=== PATIENT | male | born 1935 | race Caucasian/White ===

== ENCOUNTER 2017-03-22 14:42 | Outpatient (CLI) | payer MEDICARE, OTHER | END 2017-03-22 14:43 | disposition home or self-care (01) | DX: M19.072 Primary osteoarthritis, left ankle and foot (principal); M19.071 Primary osteoarthritis, right ankle and foot; M19.042 Primary osteoarthritis, left hand; M19.041 Primary osteoarthritis, right hand ==

== ENCOUNTER 2017-05-21 17:24 | Emergency (ER) | payer MEDICARE, OTHER ==
--- NOTE | 2017-05-21 18:01 | ED Physician Documentation ---
PD HPI GI BLEED - Stated complaint Stated Complaint: MALE - Chief complaint Chief Complaint: Abd Pain - History obtained from History obtained from: Patient, Family - History of Present Illness Timing - onset: Today Pain level max: 0 Pain level now: 0 Associated symptoms: Other (noted blood on his underwear today). No: Black/ tarry stool, Diarrhea Contributing factors: No: Sick contact, Bad food, Travel, Recent antibiotics, NSAID use, Stress, Anticoagulated Improved by: Other (nothing) Worsened by: Other (nothing) - Additional information Additional information: states constipated for the past few days. Review of Systems Constitutional: denies: Fever, Chills GI: reports: Constipation. denies: Abdominal Pain, Nausea, Vomiting, Diarrhea, Hematemesis Skin: denies: Rash Musculoskeletal: denies: Neck pain, Back pain Neurologic: denies: Focal weakness, Numbness, Headache PD PAST MEDICAL HISTORY - Past Medical History Past Medical History: Yes Respiratory: None Neuro: Other Psych: None Musculoskeletal: Osteoporosis - Past Surgical History Past Surgical History: Yes HEENT: Tonsil/Adenoidectomy - Present Medications Home Medications: Ambulatory Orders Medication Instructions Recorded Confirmed Cyanocobalamin (Vitamin B-12) 250 mcg PO 03/12/14 08/10/15 [B-12] Folic Acid 0.4 mg PO DAILY 03/12/14 08/10/15 Multivit-Min/Calc/Biotin/D3/FA 1 each PO 03/12/14 08/10/15 [Biotin Plus-Calcium & Vit D3] Vitamin B Complex [B Complete] 1 each PO DAILY 03/12/14 08/10/15 Celecoxib [CeleBREX] 200 mg PO DAILY 05/21/17 05/21/17 Magnesium Citrate 296 ml PO ONCE PRN #1 solution 05/21/17 - Allergies Allergies/Adverse Reactions: Allergies Allergy/AdvReac Type Severity Reaction Status Date / Time No Known Drug Allergies Allergy Verified 05/21/17 17:43 - Social History Does the pt smoke?: No Smoking Status: Never smoker Does the pt drink ETOH?: No Does the pt have substance abuse?: No - Immunizations Immunizations are current?: Yes PD ED PE NORMAL - Vitals Vital signs reviewed: Yes - General General: Alert and oriented X 3, No acute distress - HEENT HEENT: Moist mucous membranes - Neck Neck: Supple, no meningeal sign - Cardiac Cardiac: RRR - Respiratory Respiratory: No respiratory distress, Clear bilaterally - Abdomen Abdomen: Soft, Non tender, Non distended - Rectal Rectal: Other (normal. hemoccult neg. QC passed) - Derm Derm: Warm and dry - Neuro Neuro: Alert and oriented X 3 - Psych Psych: Normal mood, Normal affect Results - Vitals Vitals: Vital Signs - 24 hr 05/21/17 05/21/17 05/21/17 17:37 18:02 19:25 Temperature 36.4 C L 36.4 C L Heart Rate 64 76 Respiratory 16 20 15 Rate Blood Pressure 121/71 126/67 O2 Saturation 93 95 95 Oxygen O2 Source Room air - Labs Labs: Laboratory Tests 05/21/17 05/21/17 05/21/17 18:05 18:05 18:05 WBC 6.4 RBC 4.29 L Hgb 13.3 L Hct 38.4 L MCV 89.4 MCH 31.1 H MCHC 34.8 RDW 13.2 Plt Count 204 MPV 7.9 Neut # 4.6 Lymph # 0.9 L [place] # 0.8 Eos # 0.1 Baso # 0.0 Absolute Nucleated RBC 0.00 Nucleated RBCs 0.0 PT 11.3 INR 1.0 APTT 28.7 Sodium 136 Potassium 4.0 Chloride 103 Carbon Dioxide 26 Anion Gap 7.0 BUN 18 Creatinine 0.7 Estimated GFR (MDRD) 108 Glucose 104 H Calcium 8.8 Total Bilirubin 0.6 AST 22 ALT 17 Alkaline Phosphatase 50 Total Protein 6.7 Albumin 4.0 Globulin 2.7 Albumin/Globulin Ratio 1.5 Lipase 31 PD MEDICAL DECISION MAKING - ED course Complexity details: reviewed results, re-evaluated patient, considered differential, d/w patient, d/w family ED course: Patient is an 82-year-old male who presents to the emergency department with constipation today. Had fecal matter on his underwear earlier today which was thought to be blood. This was tested and hemoccult is negative. Negative Hemoccult on the rectal exam as well. No acute laboratory findings. Will place on magnesium citrate for constipation. Likely that he has had some leakage of liquid stool around the constipation. We will have him follow-up with his PCP closely. Tolerating p.o. without difficulty. No evidence of bowel obstruction or obstipation. Patient counseled regarding signs and symptoms for which I believe and urgent re-evaluation would be necessary. Patient with good understanding of and agreement to plan and is comfortable going home at this time This document was made in part using voice recognition software. While efforts are made to proofread this document, sound alike and grammatical errors may occur. Departure - Departure Disposition: 01 Home, Self Care Clinical Impression: Constipation Qualifiers: Constipation type: unspecified constipation type Qualified Code(s): K59.00 - Constipation, unspecified Condition: Good Instructions: ED Constipation Follow-Up: Johnathon Merino MD [Primary Care Provider] - Within 1 week Prescriptions: Magnesium Citrate 296 ml PO ONCE PRN #1 solution PRN Reason: Constipation Comments: Return if you worsen. There is no blood in your stool today. Discharge Date/Time: 05/21/17 19:26
[2017-05-21 18:20] LABS: BASOPHILS % (AUTO) 0.6 %; EOSINOPHILS # (AUTO) 0.1 10^3/uL (0.0-0.7); EOSINOPHILS % (AUTO) 0.9 %; HCT - HEMATOCRIT 38.4 % (42.0-52.0); HGB - HEMOGLOBIN 13.3 g/dL (14.0-18.0); LYMPHOCYTES # (AUTO) 0.9 10^3/uL (1.5-3.5); LYMPHOCYTES % (AUTO) 13.6 %; MEAN CORPUSCULAR HEMOGLOBIN 31.1 pg (27.0-31.0); MEAN CORPUSCULAR HGB CONC 34.8 g/dL (32.0-36.0); MEAN CORPUSCULAR VOLUME 89.4 fL (80.0-94.0); MEAN PLATELET VOLUME 7.9 fL (7.4-11.4); MONOCYTES # (AUTO) 0.8 10^3/uL (0.0-1.0); MONOCYTES % (AUTO) 13.2 %; NEUTROPHILS # (AUTO) 4.6 10^3/uL (1.5-6.6); NEUTROPHILS % (AUTO) 71.7 %; RED BLOOD COUNT 4.29 10^6/uL (4.70-6.10); RED CELL DISTRIBUTION WIDTH 13.2 % (12.0-15.0); UNCORRECTED WHITE BLOOD COUNT 6.4 x10^3/uL; WHITE BLOOD COUNT 6.4 x10^3/uL (4.8-10.8)
[2017-05-21 18:25] LABS: ALBUMIN/GLOBULIN RATIO 1.5 (1.0-2.2); BILIRUBIN,TOTAL 0.6 mg/dL (0.2-1.0); CALCIUM 8.8 mg/dL (8.5-10.3); CREATININE 0.7 mg/dL (0.6-1.2); PT - PROTHROMBIN TIME 11.3 secs (9.9-12.6); TOTAL PROTEIN 6.7 g/dL (6.7-8.2)
[2017-05-21 18:33] LABS: PARTIAL THROMBOPLASTIN TIME 28.7 secs (24.9-33.3)
[2017-05-21 19:26] VITALS: BP 126/67
== END 2017-05-21 19:26 | disposition home or self-care (01) ==
LOC: ED 17:24
DX: K59.00 Constipation, unspecified (principal)
CPT/HCPCS: 36415; 80053; 83690; 85025; 85610; 85730; 86850; 86900; 86901; 99283; 99284

== ENCOUNTER 2017-05-27 08:00 | Outpatient (CLI) | payer MEDICARE, OTHER ==
[2017-05-27 16:46] LABS: ALBUMIN/GLOBULIN RATIO 1.4 (1.0-2.2); BILIRUBIN,TOTAL 0.7 mg/dL (0.2-1.0); CALCIUM 8.7 mg/dL (8.5-10.3); CREATININE 0.8 mg/dL (0.6-1.2); POTASSIUM 4.3 mmol/L (3.5-5.0); TOTAL PROTEIN 6.3 g/dL (6.7-8.2)
[2017-05-28 12:00] LABS: BASOPHILS % (AUTO) 0.7 %; EOSINOPHILS % (AUTO) 0.8 %; HCT - HEMATOCRIT 39.2 % (42.0-52.0); LYMPHOCYTES # (AUTO) 0.8 10^3/uL (1.5-3.5); LYMPHOCYTES % (AUTO) 14.4 %; MEAN CORPUSCULAR HEMOGLOBIN 30.1 pg (27.0-31.0); MEAN CORPUSCULAR HGB CONC 33.3 g/dL (32.0-36.0); MEAN CORPUSCULAR VOLUME 90.5 fL (80.0-94.0); MEAN PLATELET VOLUME 8.6 fL (7.4-11.4); MONOCYTES # (AUTO) 0.6 10^3/uL (0.0-1.0); MONOCYTES % (AUTO) 11.1 %; NEUTROPHILS # (AUTO) 3.9 10^3/uL (1.5-6.6); RED BLOOD COUNT 4.33 10^6/uL (4.70-6.10); UNCORRECTED WHITE BLOOD COUNT 5.3 x10^3/uL; WHITE BLOOD COUNT 5.3 x10^3/uL (4.8-10.8)
== END 2017-05-27 23:59 ==
LOC: LAB.R 08:00
PROVIDERS: ATTEND Family Medicine
DX: M19.90 Unspecified osteoarthritis, unspecified site (principal)
CPT/HCPCS: 80053; 81001; 81003; 85025; 87086

== ENCOUNTER 2017-05-27 12:10 | Outpatient (CLI) | payer MEDICARE, OTHER ==
[2017-05-27 16:44] LABS: BILIRUBIN,URINE NEGATIVE (NEGATIVE); PH,URINE 5.5 PH (5.0-7.5)
[2017-05-27 16:47] LABS: UA CHARGE (STRIP ONLY) YES; UR CULTURE IF IND NOT INDICATED
== END 2017-05-27 12:11 | disposition home or self-care (01) ==
LOC: LAB.R 12:10
PROVIDERS: ATTEND Physician Assistant Medical
DX: R32 Unspecified urinary incontinence (principal)
CPT/HCPCS: 81001; 81003; 87086

== ENCOUNTER 2018-07-11 09:54 | Emergency (ER) | payer MEDICARE, OTHER ==
[2018-07-11 10:28] LABS: BILIRUBIN,URINE NEGATIVE (NEGATIVE); GLUCOSE, URINE (UA) NEGATIVE (NEGATIVE); KETONES,URINE (UA) NEGATIVE (NEGATIVE); LEUKOCYTE ESTERASE, URINE NEGATIVE (NEGATIVE); NITRITE,URINE NEGATIVE (NEGATIVE); OCCULT BLOOD,URINE TRACE-INTA (NEGATIVE); PROTEIN,URINE NEGATIVE (NEGATIVE); UROBILINOGEN,URINE 0.2 (NORMAL) E.U./dL (NORMAL)
[2018-07-11 10:31] LABS: CLARITY,URINE CLEAR (CLEAR)
--- NOTE | 2018-07-11 10:54 | ED Physician Documentation ---
PD HPI MALE - Stated complaint Stated Complaint: UNALBE TO UNRINATE - Chief complaint Chief Complaint: Abd Pain - History obtained from History obtained from: Patient, Family - History of Present Illness Timing - onset: Today Timing - duration: Hours Timing - details: Abrupt onset, Still present Associated symptoms: Unable to urinate Similar symptoms before: Diagnosis (urinary retention) Recently seen: Not recently seen - Additional information Additional information: 83-year-old male on tamsulosin for BPH has developed acute urinary retention. He states that he got up to go to the bathroom this morning went to the bathroom was only able to get a tiny bit out and felt that he really needed to go badly. He is come to the emergency department he try to go to the bathroom when he arrived here nothing was able to come out and since he has been here he has been able to produce a small urine specimen.He has had this happen to him 2 times previously with urinary retention after his surgical procedure at that time he only had to have in and out catheterization and this resolved. Review of Systems Constitutional: denies: Fever Eyes: denies: Decreased vision Ears: denies: Ear pain Nose: denies: Congestion Throat: denies: Sore throat Respiratory: denies: Cough GI: reports: Abdominal Pain. denies: Nausea, Vomiting : reports: Unable to Void. denies: Dysuria, Frequency Skin: denies: Rash Musculoskeletal: denies: Neck pain, Back pain, Extremity pain PD PAST MEDICAL HISTORY - Past Medical History Respiratory: None HEENT: Macular degeneration Psych: None Musculoskeletal: Osteoporosis - Past Surgical History Past Surgical History: Yes HEENT: Tonsil/Adenoidectomy - Present Medications Home Medications: Ambulatory Orders Medication Instructions Recorded Confirmed Cyanocobalamin (Vitamin B-12) 250 mcg PO 03/12/14 08/10/15 [B-12] Folic Acid 0.4 mg PO DAILY 03/12/14 08/10/15 Multivit-Min/Calc/Biotin/D3/FA 1 each PO 03/12/14 08/10/15 [Biotin Plus-Calcium & Vit D3] Vitamin B Complex [B Complete] 1 each PO DAILY 03/12/14 08/10/15 Celecoxib [CeleBREX] 200 mg PO DAILY 05/21/17 05/21/17 Magnesium Citrate 296 ml PO ONCE PRN #1 solution 05/21/17 Finasteride [Proscar] 07/11/18 07/11/18 Tamsulosin [Flomax] 07/11/18 - Allergies Allergies/Adverse Reactions: Allergies Allergy/AdvReac Type Severity Reaction Status Date / Time No Known Drug Allergies Allergy Verified 07/11/18 10:08 - Social History Does the pt smoke?: No Smoking Status: Never smoker Does the pt drink ETOH?: No Does the pt have substance abuse?: No - Immunizations Immunizations are current?: Yes PD ED PE NORMAL - Vitals Vital signs reviewed: Yes (normal ) - General General: Alert and oriented X 3, No acute distress, Well developed/nourished - HEENT HEENT: Atraumatic, PERRL, EOMI - Cardiac Cardiac: RRR, No murmur - Respiratory Respiratory: No respiratory distress, Clear bilaterally - Abdomen Abdomen: Soft, Other (mild suprapubic tenderness) - Back Back: No CVA TTP, No spinal TTP - Derm Derm: Normal color, Warm and dry, No rash - Extremities Extremities: No deformity, No edema - Neuro Neuro: Alert and oriented X 3, bull fiddle player 2-12 intact, No motor deficit, No sensory deficit, Normal speech Eye Opening: Spontaneous Motor: Obeys Commands Verbal: Oriented GCS Score: 15 - Psych Psych: Normal mood, Normal affect Results - Vitals Vitals: Vital Signs - 24 hr 07/11/18 10:06 Temperature 36.2 C L Heart Rate 75 Respiratory 20 Rate Blood Pressure 109/75 O2 Saturation 97 Oxygen O2 Source Room air - Labs Labs: Laboratory Tests 07/11/18 10:15 Urine Color YELLOW Urine Clarity CLEAR Urine pH 6.0 Ur Specific [place] 1.010 Urine Protein NEGATIVE Urine Glucose (UA) NEGATIVE Urine Ketones NEGATIVE Urine Occult Blood TRACE-INTA Urine Nitrite NEGATIVE Urine Bilirubin NEGATIVE Urine Urobilinogen 0.2 (NORMAL) Ur Leukocyte Esterase NEGATIVE Ur Microscopic Review NOT INDICATED Urine Culture Comments NOT INDICATED Procedures - Bedside sono Bedside sono by EMP: With use of bedside ultrasound the bladder is imaged and appears to be over distended. PD MEDICAL DECISION MAKING - ED course Complexity details: considered differential, d/w patient ED course: 83-year-old male with acute urinary retention has Hernandez catheter placed for relief. - Sepsis Event Vital Signs: Vital Signs - 24 hr 07/11/18 10:06 Temperature 36.2 C L Heart Rate 75 Respiratory 20 Rate Blood Pressure 109/75 O2 Saturation 97 Oxygen O2 Source Room air Departure - Departure Disposition: 01 Home, Self Care Clinical Impression: Acute urinary retention Condition: Stable Instructions: ED Retention Urinary Male Follow-Up: Johnathon Merino MD [Primary Care Provider] - Melecio Bhaita MD [Physician No Access] - Comments: Call Dr. Alcazar's office this afternoon for follow-up appointment for this urinary retention.
[2018-07-11 12:51] VITALS: BP 134/74
== END 2018-07-11 13:02 | disposition home or self-care (01) ==
LOC: ED 09:54
DX: N40.1 Benign prostatic hyperplasia with lower urinary tract symptoms (principal); R33.8 Other retention of urine
CPT/HCPCS: 51702; 81001; 81003; 87086; 99283

== ENCOUNTER 2018-08-16 13:01 | Outpatient (CLI) | payer MEDICARE, OTHER | END 2018-08-16 13:02 | disposition critical access hospital (66) | LOC: EMS 13:01 | PROVIDERS: ATTEND Surgery | DX: R53.1 Weakness (principal); R53.83 Other fatigue | CPT/HCPCS: A0425; A0429 ==

== ENCOUNTER 2018-08-16 13:36 | Inpatient (IN) | payer MEDICARE, OTHER ==
[2018-08-16 14:08] LABS: BASOPHILS # (AUTO) 0.1 10^3/uL (0.0-0.1); BASOPHILS % (AUTO) 0.3 %; HGB - HEMOGLOBIN 12.6 g/dL (14.0-18.0); LYMPHOCYTES # (AUTO) 0.4 10^3/uL (1.5-3.5); LYMPHOCYTES % (AUTO) 2.4 %; MEAN CORPUSCULAR HGB CONC 34.5 g/dL (32.0-36.0); MEAN CORPUSCULAR VOLUME 89.7 fL (80.0-94.0); MEAN PLATELET VOLUME 7.6 fL (7.4-11.4); MONOCYTES # (AUTO) 1.8 10^3/uL (0.0-1.0); MONOCYTES % (AUTO) 9.8 %; NEUTROPHILS # (AUTO) 15.9 10^3/uL (1.5-6.6); NEUTROPHILS % (AUTO) 87.5 %; PLT - PLATELET COUNT 204 10^3/uL (130-450); RED BLOOD COUNT 4.08 10^6/uL (4.70-6.10); RED CELL DISTRIBUTION WIDTH 13.4 % (12.0-15.0); WHITE BLOOD COUNT 18.1 x10^3/uL (4.8-10.8)
[2018-08-16 14:17] LABS: CALCIUM 8.8 mg/dL (8.5-10.3); CREATININE 0.9 mg/dL (0.6-1.2)
--- NOTE | 2018-08-16 14:49 | XRAY Report ---
Reason: weak Procedure Date: 08/16/2018 Accession Number: [id number] / [id number] Procedure: XR - Chest 2 View X-Ray CPT Code: 74729 FULL RESULT: EXAM: CHEST RADIOGRAPHY EXAM DATE: 08/16/2018 02:27 PM. CLINICAL HISTORY: Weakness COMPARISON: XR CHEST PA AND LAT 06/27/2009 12:32 PM. TECHNIQUE: 2 views. FINDINGS: Lungs/Pleura: No focal opacities evident. No pleural effusion. No pneumothorax. Normal volumes. Mediastinum: There is mild cardiomegaly. There is thoracic aortic tortuosity. Other: There is shunt tubing projecting over the right chest. IMPRESSION: No acute intrathoracic plain film abnormality. RADIA
--- NOTE | 2018-08-16 15:34 | ED Physician Documentation ---
History of Present Illness - Stated complaint Stated Complaint: WEAKNESS - Chief complaint Chief Complaint: General - Additonal information Additional information: hx from pt 83 male weak for several days no fever + cough mild upper abd pain no NVD no bloody black BM leaking urine and dysuira no rash too weak to stand now weakness is all over no fall Review of Systems Constitutional: reports: Fatigue. denies: Fever, Chills Cardiac: denies: Chest pain / pressure Respiratory: reports: Cough. denies: Dyspnea GI: reports: Abdominal Pain. denies: Nausea, Vomiting, Diarrhea, Bloody / black stool : reports: Incontinent. denies: Dysuria Skin: denies: Rash Neurologic: reports: Generalized weakness. 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 shunt HEENT: Tonsil/Adenoidectomy - Present Medications Home Medications: Ambulatory Orders Medication Instructions Recorded Confirmed Cyanocobalamin (Vitamin B-12) 250 mcg PO 03/12/14 08/10/15 [B-12] Folic Acid 0.4 mg PO DAILY 03/12/14 08/10/15 Multivit-Min/Calc/Biotin/D3/FA 1 each PO 03/12/14 08/10/15 [Biotin Plus-Calcium & Vit D3] Vitamin B Complex [B Complete] 1 each PO DAILY 03/12/14 08/10/15 Celecoxib [CeleBREX] 200 mg PO DAILY 05/21/17 05/21/17 Magnesium Citrate 296 ml PO ONCE PRN #1 solution 05/21/17 Finasteride [Proscar] 07/11/18 07/11/18 Tamsulosin [Flomax] 07/11/18 - Allergies Allergies/Adverse Reactions: Allergies Allergy/AdvReac Type Severity Reaction Status Date / Time No Known Drug Allergies Allergy Verified 08/16/18 14:01 - Social History Does the pt smoke?: No Smoking Status: Never smoker Does the pt drink ETOH?: No Does the pt have substance abuse?: No - Immunizations Immunizations are current?: Yes PD ED PE NORMAL - Vitals Vital signs reviewed: Yes - General General: Alert and oriented X 3 - HEENT HEENT: PERRL - Neck Neck: Supple, no meningeal sign - Cardiac Cardiac: RRR - Respiratory Respiratory: No respiratory distress, Clear bilaterally - Abdomen Abdomen: Soft, Other (minimally TTP upper abd s peritoneal sx) - Derm Derm: Normal color, No rash, Other (no sacral decub) - Neuro Neuro: Alert and oriented X 3 Results - Vitals Vitals: Vital Signs - 24 hr 08/16/18 08/16/18 08/16/18 13:36 14:29 15:00 Temperature 37.7 C H 37.7 C H Heart Rate 92 86 95 Respiratory 18 18 22 Rate Blood Pressure 132/63 H 126/59 L 137/71 H O2 Saturation 100 95 97 08/16/18 08/16/18 08/16/18 16:00 16:30 17:28 Temperature Heart Rate 89 88 88 Respiratory 22 22 18 Rate Blood Pressure 145/64 H 127/66 136/64 H O2 Saturation 96 96 97 08/16/18 18:34 Temperature 38.7 C H Heart Rate 86 Respiratory 18 Rate Blood Pressure 145/68 H O2 Saturation 96 Oxygen O2 Source Room air - Labs Labs: Laboratory Tests 08/16/18 08/16/18 08/16/18 13:57 13:57 13:57 WBC 18.1 H RBC 4.08 L Hgb 12.6 L Hct 36.6 L MCV 89.7 MCH 31.0 MCHC 34.5 RDW 13.4 Plt Count 204 MPV 7.6 Neut # (Auto) 15.9 H Lymph # (Auto) 0.4 L [place] # (Auto) 1.8 H Eos # (Auto) 0.0 Baso # (Auto) 0.1 Absolute Nucleated RBC 0.00 Nucleated RBC % 0.0 Sodium 136 Potassium 4.1 Chloride 102 Carbon Dioxide 27 Anion Gap 7.0 BUN 30 H Creatinine 0.9 Estimated GFR (MDRD) 80 L Glucose 148 H Lactic Acid Calcium 8.8 Troponin I < 0.04 Urine Color Urine Clarity Urine pH Ur Specific [place] Urine Protein Urine Glucose (UA) Urine Ketones Urine Occult Blood Urine Nitrite Urine Bilirubin Urine Urobilinogen Ur Leukocyte Esterase Urine RBC Urine WBC Urine WBC Clumps Ur Squamous Epith Cells Urine Bacteria Ur Microscopic Review Urine Culture Comments 08/16/18 08/16/18 13:57 15:55 WBC RBC Hgb Hct MCV MCH MCHC RDW Plt Count MPV Neut # (Auto) Lymph # (Auto) [place] # (Auto) Eos # (Auto) Baso # (Auto) Absolute Nucleated RBC Nucleated RBC % Sodium Potassium Chloride Carbon Dioxide Anion Gap BUN Creatinine Estimated GFR (MDRD) Glucose Lactic Acid 1.1 Calcium Troponin I Urine Color YELLOW Urine Clarity CLOUDY Urine pH 6.0 Ur Specific [place] 1.020 Urine Protein 30 H Urine Glucose (UA) NEGATIVE Urine Ketones TRACE Urine Occult Blood LARGE H Urine Nitrite POSITIVE H Urine Bilirubin NEGATIVE Urine Urobilinogen 0.2 (NORMAL) Ur Leukocyte Esterase LARGE H Urine RBC 0-5 Urine WBC >25 H Urine WBC Clumps PRESENT Ur Squamous Epith Cells NONE SEEN Urine Bacteria Many H Ur Microscopic Review INDICATED Urine Culture Comments INDICATED - Rads (name of study) CXR Radiology: See rad report (no acute) PD MEDICAL DECISION MAKING - ED course ED course: UTI with weakness so severe he cannot stand given male and concern for prostate seeding ordered maria isabel hitchcock hospitalist at 1630 - Sepsis Event Vital Signs: Vital Signs - 24 hr 08/16/18 08/16/18 08/16/18 13:36 14:29 15:00 Temperature 37.7 C H 37.7 C H Heart Rate 92 86 95 Respiratory 18 18 22 Rate Blood Pressure 132/63 H 126/59 L 137/71 H O2 Saturation 100 95 97 08/16/18 08/16/18 08/16/18 16:00 16:30 17:28 Temperature Heart Rate 89 88 88 Respiratory 22 22 18 Rate Blood Pressure 145/64 H 127/66 136/64 H O2 Saturation 96 96 97 08/16/18 18:34 Temperature 38.7 C H Heart Rate 86 Respiratory 18 Rate Blood Pressure 145/68 H O2 Saturation 96 Oxygen O2 Source Room air Departure - Departure Disposition: 66 [facility] DC/Xfer Clinical Impression: Weakness UTI (urinary tract infection) Qualifiers: Urinary tract infection type: site unspecified Hematuria presence: without hematuria Qualified Code(s): N39.0 - Urinary tract infection, site not specified Condition: Fair Discharge Date/Time: 08/16/18 19:31
[2018-08-16 16:09] LABS: BILIRUBIN,URINE NEGATIVE (NEGATIVE); GLUCOSE, URINE (UA) NEGATIVE (NEGATIVE); KETONES,URINE (UA) TRACE mg/dL (NEGATIVE); LEUKOCYTE ESTERASE, URINE LARGE (NEGATIVE); NITRITE,URINE POSITIVE (NEGATIVE); OCCULT BLOOD,URINE LARGE (NEGATIVE); PROTEIN,URINE 30 mg/dL (NEGATIVE); UROBILINOGEN,URINE 0.2 (NORMAL) E.U./dL (NORMAL)
[2018-08-16 16:15] LABS: CLARITY,URINE CLOUDY (CLEAR)
[2018-08-16 16:24] LABS: BACTERIA,URINE Many /HPF (None Seen); RBC,URINE 0-5 /HPF (0-5); SQUAMOUS EPITHELIAL CELL,UR NONE SEEN (<= Few); WBC CLUMPS,URINE PRESENT
[2018-08-16] MEDS ORDERED: cefTRIAXone 1 GM in SODIUM CHLORIDE 0.9% MINIBAG 100 ML IV STA (16:27)
[2018-08-16] MEDS ORDERED: CIPROFLOXACIN 400 MG/200 ML 200 ML IV ONE (16:29)
--- NOTE | 2018-08-16 19:37 | HISTORY & PHYSICAL EXAMINATION ---
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 The patient states that his symptoms have been going on for almost 1 month now where he is felt increasingly weak. He states that about 3 weeks ago he began having difficulty urinating. He had urinary retention and was seen in the emergency department where he had a Hernandez catheter placed for his urinary retention. About 1 week ago the Hernandez catheter was removed and after removal of the Hernandez catheter the patient started to notice that he had dysuria and fevers. He states that over the course of the next week he became increasingly weak. The patient states that today he was so weak that he could not even stand up. He states that he was having a difficult time standing from a sitting position and finally decided he needed to come in to the emergency department. The patient states that he has noticed that he has had fevers and chills for the last 3 days and significantly increasing generalized weakness over the last 3 days. He denies any chest pain, cough, shortness of air, abdominal pain, nausea, vomiting, diarrhea, constipation, back pain, neck stiffness, night sweats or any focal neurologic deficits. On presentation to the emergency department the patient was febrile with a temperature of 37.7 and had a T-max in the emergency department of 38.7, he was tachycardic with a heart rate of 92 and otherwise was normotensive and had no respiratory distress. The patient underwent routine lab work which revealed a leukocytosis of 18.1, mild anemia of 12.6 and mild hyperglycemia with a blood glucose of 148. The remainder of the patient's electrolytes were all within normal limits. The patient had no elevation his lactic acid. The patient's troponin was less than 0.04. The patient's urinalysis did reveal large occult blood with positive nitrite and large leukocyte estrase along with greater than 25 WBCs and many bacteria. These findings were consistent with a urinary tract infection. The patient appeared to have a complicated UTI given his early sepsis type picture in the setting of a history of BPH. The patient was admitted to the [facility] for treatment of urinary tract infection with IV antibiotics, IV fluids and physical therapy. 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 Social History Notes: The patient lives in [place], [place] with his . He is been to his for 57 years. They have 2 children together. The patient grew up in the [facility] where he moved up and down the [facility] and then settled in the [facility] where he brought up his family. 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 The patient is a former smoker. He smoked 1 pack per day until 1988 when he quit. The patient smoked for about 45 years. He rarely drinks alcohol and denies any illicit drug use. - POLST Patient has POLST: No POLST Status: Full Code Meds/Allgy - Home Medications Home Medications: Ambulatory Orders Medication Instructions Recorded Confirmed Cyanocobalamin (Vitamin B-12) 250 mcg PO 03/12/14 08/10/15 [B-12] Folic Acid 0.4 mg PO DAILY 03/12/14 08/10/15 Multivit-Min/Calc/Biotin/D3/FA 1 each PO 03/12/14 08/10/15 [Biotin Plus-Calcium & Vit D3] Vitamin B Complex [B Complete] 1 each PO DAILY 03/12/14 08/10/15 Celecoxib [CeleBREX] 200 mg PO DAILY 05/21/17 05/21/17 Magnesium Citrate 296 ml PO ONCE PRN #1 solution 05/21/17 Finasteride [Proscar] 07/11/18 07/11/18 Tamsulosin [Flomax] 07/11/18 - Allergies Allergies/Adverse Reactions: Allergies Allergy/AdvReac Type Severity Reaction Status Date / Time No Known Drug Allergies Allergy Verified 08/16/18 14:01 Review of Systems - Other Findings Other Findings: A comprehensive review of systems was performed the pertinent positives and negatives are stated above in the HPI and the remainder of the review of systems is negative. Exam - Vital Signs Reviewed Vital Signs: Yes Vital Signs: Vital Signs x48h Temp Pulse Resp BP Pulse Ox 08/16/18 18:34 38.7 C H 86 18 145/68 H 96 08/16/18 17:28 88 18 136/64 H 97 08/16/18 16:30 88 22 127/66 96 08/16/18 16:00 89 22 145/64 H 96 08/16/18 15:00 95 22 137/71 H 97 08/16/18 14:29 37.7 C H 86 18 126/59 L 95 08/16/18 13:36 37.7 C H 92 18 132/63 H 100 - Physical Exam General Appearance: positive: Mild distress, Other (Patient is very drowsy barely opens his eyes when talking to me or when he is examined. He appears very weak.) Eyes Bilateral: positive: Normal inspection, PERRL, EOMI, No lid inflammation, Conjunctivae nml, No scleral icterus ENT: positive: ENT inspection nml, Pharynx nml, Dry mucous membranes. negative: Purulent nasal drainage, Pharyngeal erythema, Oral lesions Neck: positive: Nml inspection, Thyroid nml, No JVD, Trachea midline. negative: Thyromegaly, Lymphadenopathy (R), Lymphadenopathy (L), Carotid bruit, Tracheal deviation Respiratory: positive: Chest non-tender, No respiratory distress, Breath sounds nml. negative: Wheezes, Rales, Rhonchi Cardiovascular: positive: Regular rate & rhythm, No murmur, No gallop Peripheral Pulses: positive: 2+ Abdomen: positive: Non-tender, No organomegaly, Nml bowel sounds, No distention. negative: Guarding, Rebound, Hepatomegaly Back: positive: Nml inspection. negative: CVA tenderness (R), CVA tenderness (L) Skin: positive: Color nml, No rash, Warm, Dry. negative: Cyanosis, Diaphoresis, Pallor Extremities: positive: Non-tender, Full ROM, Nml appearance, No pedal edema Neurologic/Psychiatric: positive: Oriented x3, CN's nml (2-12), Motor nml, Sensation nml, Mood/affect nml Conclusion/Plan - Problem List (1) UTI (urinary tract infection) Conclusion/Plan: The patient presented to the emergency department with early sepsis and generalized weakness. The patient had fever in the emergency department up to 38.7C, he was tachycardic up to heart rate of 95 and was found to have leukocytosis with a WBC count of 18.1. The patient was quite drowsy when examined by myself. The patient was found to have a urinary tract infection after having a Hernandez placed a week earlier for urinary retention. The urinary tract infection may have been caused by the Hernandez catheter or due to the patient's BPH. Plan: IV antibiotics with ceftriaxone Blood cultures and urine cultures IV fluids Check BPH and consider treating for prostatitis if it is elevated Qualifiers: Urinary tract infection type: site unspecified Hematuria presence: without hematuria Qualified Code(s): N39.0 - Urinary tract infection, site not specified (2) Weakness Conclusion/Plan: Patient presented with generalized weakness which appears likely to be secondary to ongoing urinary tract infection and early sepsis. The patient will have his infection treated with IV fluids and an IV antibiotics. We will continue to monitor the patient's weakness which which we assume will improve with improvement of the infection. The patient will be seen by physical therapy and assessed. (3) Hyperglycemia Conclusion/Plan: The patient does not have any history of diabetes but was hyperglycemic on presentation with a blood glucose of 148. The patient will have blood glucose monitored daily and will undergo hemoglobin A1c in the morning. Depending on the results we will consider placing the patient on sliding scale insulin. (4) BPH (benign prostatic hyperplasia) Conclusion/Plan: Patient has been having significant symptoms of his BPH and recently required a Hernandez catheter for urinary retention. Likely the patient's current UTI is due to placement of a Hernandez catheter or from the urinary retention. It is possible the patient may have prostatitis given the enlarged prostate. We will check the patient's PSA and consider treating for prostatitis with longer duration of antibiotics. We will continue the patient's home dose of Flomax and finasteride while he is hospitalized. Qualifiers: Lower urinary tract symptom presence: symptoms present Lower urinary tract symptom detail: urinary retention Qualified Code(s): N40.1 - Benign prostatic hyperplasia with lower urinary tract symptoms; R33.8 - Other retention of urine (5) Osteoarthritis Conclusion/Plan: The patient has a history of osteoarthritis and does use Celebrex at home. While the patient is hospitalized here we will place him on Tylenol, ibuprofen and oxycodone for pain relief. Patient will also be seen by physical therapy. Qualifiers: Osteoarthritis location: unspecified site Osteoarthritis type: unspecified Qualified Code(s): M19.90 - Unspecified osteoarthritis, unspecified site - Lab Results Lab results reviewed: Yes Fish Bones: 08/16/18 13:57 08/16/18 13:57 Other Lab Results: Laboratory Results WBC 18.1 x10^3/uL (4.8-10.8) H 08/16/18 13:57 RBC 4.08 10^6/uL (4.70-6.10) L 08/16/18 13:57 Hgb 12.6 g/dL (14.0-18.0) L 08/16/18 13:57 Hct 36.6 % (42.0-52.0) L 08/16/18 13:57 MCV 89.7 fL (80.0-94.0) 08/16/18 13:57 MCH 31.0 pg (27.0-31.0) 08/16/18 13:57 MCHC 34.5 g/dL (32.0-36.0) 08/16/18 13:57 RDW 13.4 % (12.0-15.0) 08/16/18 13:57 Plt Count 204 10^3/uL (130-450) 08/16/18 13:57 MPV 7.6 fL (7.4-11.4) 08/16/18 13:57 Neut # (Auto) 15.9 10^3/uL (1.5-6.6) H 08/16/18 13:57 Lymph # (Auto) 0.4 10^3/uL (1.5-3.5) L 08/16/18 13:57 [place] # (Auto) 1.8 10^3/uL (0.0-1.0) H 08/16/18 13:57 Eos # (Auto) 0.0 10^3/uL (0.0-0.7) 08/16/18 13:57 Baso # (Auto) 0.1 10^3/uL (0.0-0.1) 08/16/18 13:57 Absolute Nucleated RBC 0.00 x10^3/uL 08/16/18 13:57 Nucleated RBC % 0.0 /100WBC 08/16/18 13:57 Sodium 136 mmol/L (135-145) 08/16/18 13:57 Potassium 4.1 mmol/L (3.5-5.0) 08/16/18 13:57 Chloride 102 mmol/L (101-111) 08/16/18 13:57 Carbon Dioxide 27 mmol/L (21-32) 08/16/18 13:57 Anion Gap 7.0 (6-13) 08/16/18 13:57 BUN 30 mg/dL (6-20) H 08/16/18 13:57 Creatinine 0.9 mg/dL (0.6-1.2) 08/16/18 13:57 Estimated GFR (MDRD) 80 (>89) L 08/16/18 13:57 Glucose 148 mg/dL (70-100) H 08/16/18 13:57 Lactic Acid 1.1 mmol/L (0.5-2.2) 08/16/18 13:57 Calcium 8.8 mg/dL (8.5-10.3) 08/16/18 13:57 Troponin I < 0.04 ng/mL (<0.49) 08/16/18 13:57 Urine Color YELLOW 08/16/18 15:55 Urine Clarity CLOUDY (CLEAR) 08/16/18 15:55 Urine pH 6.0 PH (5.0-7.5) 08/16/18 15:55 Ur Specific [place] 1.020 (1.002-1.030) 08/16/18 15:55 Urine Protein 30 mg/dL (NEGATIVE) H 08/16/18 15:55 Urine Glucose (UA) NEGATIVE mg/dL (NEGATIVE) 08/16/18 15:55 Urine Ketones TRACE mg/dL (NEGATIVE) 08/16/18 15:55 Urine Occult Blood LARGE (NEGATIVE) H 08/16/18 15:55 Urine Nitrite POSITIVE (NEGATIVE) H 08/16/18 15:55 Urine Bilirubin NEGATIVE (NEGATIVE) 08/16/18 15:55 Urine Urobilinogen 0.2 (NORMAL) E.U./dL (NORMAL) 08/16/18 15:55 Ur Leukocyte Esterase LARGE (NEGATIVE) H 08/16/18 15:55 Urine RBC 0-5 /HPF (0-5) 08/16/18 15:55 Urine WBC >25 /HPF (0-3) H 08/16/18 15:55 Urine WBC Clumps PRESENT 08/16/18 15:55 Ur Squamous Epith Cells NONE SEEN (<= Few) 08/16/18 15:55 Urine Bacteria Many /HPF (None Seen) H 08/16/18 15:55 Ur Microscopic Review INDICATED 08/16/18 15:55 Urine Culture Comments INDICATED 08/16/18 15:55 - Diagnostic Imaging Results Diagnostic Imaging Results: positive: Final report reviewed - EKG Results EKG Interpreted Independently: Yes Core Measures - Anticipated LOS I expect patient to be DC'd or transferred within 96 hours.: Yes - DVT/VTE - Prophylaxis VTE/DVT Prophylaxis med ordered at admit?: Yes
[2018-08-16] MEDS ORDERED: IBUPROFEN 600 MG TABLET PO PRN (20:39)
[2018-08-16] MEDS ORDERED: PROMETHAZINE 25 MG/1 ML VIAL IM PRN (20:39)
[2018-08-16] MEDS ORDERED: PROCHLORPERAZINE 10 MG/2 ML VIAL IVP PRN (20:39)
[2018-08-16] MEDS ORDERED: oxyCODONE 5 MG TABLET PO PRN ×2 (20:39)
[2018-08-16] MEDS ORDERED: ZOLPIDEM 5 MG TABLET PO PRN (20:39)
[2018-08-16] MEDS ORDERED: ONDANSETRON 4 MG/2 ML VIAL IVP PRN (20:39)
[2018-08-16] MEDS: ACETAMINOPHEN 325 MG TABLET PO PRN (21:21)
[2018-08-16] MEDS: SODIUM CHLORIDE FLUSH 0.9% 10 ML SYRINGE IVP PRN (21:22)
[2018-08-16] MEDS: SODIUM CHLORIDE 0.9% 1,000 ML IV SCH (21:22)
[2018-08-17] MEDS: SODIUM CHLORIDE FLUSH 0.9% 10 ML SYRINGE IVP SCH ×3 (01:34→17:45)
[2018-08-17 04:54] LABS: BASOPHILS % (AUTO) 0.2 %; HGB - HEMOGLOBIN 11.5 g/dL (14.0-18.0); LYMPHOCYTES # (AUTO) 0.4 10^3/uL (1.5-3.5); LYMPHOCYTES % (AUTO) 2.6 %; MEAN CORPUSCULAR HEMOGLOBIN 30.9 pg (27.0-31.0); MEAN CORPUSCULAR HGB CONC 34.3 g/dL (32.0-36.0); MEAN CORPUSCULAR VOLUME 90.1 fL (80.0-94.0); MEAN PLATELET VOLUME 7.6 fL (7.4-11.4); MONOCYTES # (AUTO) 1.5 10^3/uL (0.0-1.0); MONOCYTES % (AUTO) 10.9 %; NEUTROPHILS % (AUTO) 86.3 %; PLT - PLATELET COUNT 166 10^3/uL (130-450); RED BLOOD COUNT 3.74 10^6/uL (4.70-6.10); RED CELL DISTRIBUTION WIDTH 13.5 % (12.0-15.0); WHITE BLOOD COUNT 13.9 x10^3/uL (4.8-10.8)
[2018-08-17 05:03] LABS: ALBUMIN 3.1 g/dL (3.2-5.5); ALBUMIN/GLOBULIN RATIO 1.1 (1.0-2.2); ALKALINE PHOSPHATASE 47 IU/L (42-121); ALT ALANINE AMINOTRANSFERASE 14 IU/L (10-60); AST ASPARTATE AMINOTRANSFERASE 22 IU/L (10-42); BUN - BLOOD UREA NITROGEN 33 mg/dL (6-20); CARBON DIOXIDE - CO2 24 mmol/L (21-32); CHLORIDE 103 mmol/L (101-111); CREATININE 0.9 mg/dL (0.6-1.2); GFR - MDRD 80 (>89); GLUCOSE 133 mg/dL (70-100); MAGNESIUM 1.9 mg/dL (1.7-2.8); PHOSPHORUS 2.5 mg/dL (2.5-4.6); SODIUM 135 mmol/L (135-145); TOTAL PROTEIN 5.8 g/dL (6.7-8.2)
[2018-08-17 05:18] LABS: VBG PH 7.452 (7.31-7.41)
[2018-08-17 05:22] LABS: HB2 TOTAL 11.7 g/dL; HEMOGLOBIN A1C 0.46 g/dL; HEMOGLOBIN A1C % 5.7 % (4.6-6.2)
[2018-08-17] MEDS: SODIUM CHLORIDE 0.9% 1,000 ML IV SCH ×2 (07:10→20:00)
[2018-08-17] MEDS: PANTOPRAZOLE 40 MG TABLET PO SCH (07:10)
[2018-08-17] MEDS: FOLIC ACID 1 MG TABLET PO SCH (08:23)
[2018-08-17] MEDS: CELECOXIB 100 MG CAPSULE PO SCH (08:23)
[2018-08-17] MEDS: POLYETHYLENE GLYCOL 3350 17 GM PACKET PO SCH (08:23)
[2018-08-17] MEDS: FINASTERIDE 5 MG TABLET PO SCH (08:23)
[2018-08-17] MEDS: TAMSULOSIN 0.4 MG CAPSULE PO SCH (08:23)
[2018-08-17] MEDS ORDERED: FOLIC ACID 0.4 MG PO SCH (09:00)
[2018-08-17] MEDS ORDERED: cefTRIAXone 2 GM in SODIUM CHLORIDE 0.9% MINIBAG 100 ML IV SCH (09:00)
[2018-08-17 10:15] LABS: PSA FREE 0.02 ng/mL (0.16-2.81)
[2018-08-17 10:16] LABS: PSA TOTAL 0.25 ng/mL (0.000-2.000)
[2018-08-17] MEDS: ACETAMINOPHEN 325 MG TABLET PO PRN (15:58)
[2018-08-17] MEDS: PIPERACILLIN/TAZOBACTAM 4.5 GM in SODIUM CHLORIDE 0.9% MINIBAG 100 ML IV SCH ×2 (16:48→22:57)
[2018-08-17] MEDS ORDERED: SODIUM CHLORIDE 0.9% 1,000 ML IV SCH (21:42)
--- NOTE | 2018-08-17 22:42 | PROVIDER PROGRESS NOTE ---
Subjective - Prog Note Date Prog Note Date: 08/17/18 Prog Note Time: 14:00 - Subjective Pt reports feeling: Improved Subjective: Eric states that he is feeling much better after the tylenol used to treat his recent fever. He states that he has clear thinking and denies a new cough, shortness of breath, rashes, dizziness, or chest pain. Objective - Vital Signs/Intake & Output Reviewed Vital Signs: Yes Vital Signs: Vital Signs x48h Temp Pulse Resp BP Pulse Ox 08/17/18 22:30 112/66 08/17/18 21:33 37.2 C 90 18 104/55 L 96 08/17/18 15:46 38.8 C H 101 H 18 121/76 95 Intake & Output: Intake & Output 08/14/18 08/15/18 08/16/18 08/17/18 23:59 23:59 23:59 23:59 Intake Total 200 3890 Output Total 1630 Balance 200 2260 - Objective General Appearance: positive: No acute distress, Alert Eyes Bilateral: positive: Normal inspection ENT: positive: ENT inspection nml, Pharynx nml, Dry mucous membranes Neck: positive: Thyroid nml, No JVD, Trachea midline Respiratory: positive: Chest non-tender, No respiratory distress, Other (diminished through out) Cardiovascular: positive: Regular rate & rhythm, No gallop, Systolic murmur Peripheral Pulses: 1+ Radial (R), 1+ Radial (L) Abdomen: positive: Non-tender, Nml bowel sounds Back: positive: Nml inspection Skin: positive: No rash, Warm, Diaphoresis, Pallor Extremities: positive: Non-tender, Full ROM, Pedal edema (mild, BLE) Neurologic/Psychiatric: positive: Oriented x3, CN's nml (2-12), Motor nml, Sensation nml, Mood/affect nml Reflexes: Bicep (R): 3+, Bicep (L): 3+ - Lab Results Fish Bones: 08/18/18 04:45 08/18/18 04:45 Other Labs: Lab Results x24hrs 08/17/18 08/17/18 08/17/18 Range/Units 09:03 04:30 04:30 WBC (4.8-10.8) x10^3/uL RBC (4.70-6.10) 10^6/uL Hgb (14.0-18.0) g/dL Hct (42.0-52.0) % MCV (80.0-94.0) fL MCH (27.0-31.0) pg MCHC (32.0-36.0) g/dL RDW (12.0-15.0) % Plt Count (130-450) 10^3/uL MPV (7.4-11.4) fL Neut # (Auto) (1.5-6.6) 10^3/uL Lymph # (Auto) (1.5-3.5) 10^3/uL [place] # (Auto) (0.0-1.0) 10^3/uL Eos # (Auto) (0.0-0.7) 10^3/uL Baso # (Auto) (0.0-0.1) 10^3/uL Absolute Nucleated RBC x10^3/uL Nucleated RBC % /100WBC VBG pH 7.452 H (7.31-7.41) Ionized Calcium 1.04 L (1.15-1.33) mmol/L Sodium (135-145) mmol/L Potassium (3.5-5.0) mmol/L Chloride (101-111) mmol/L Carbon Dioxide (21-32) mmol/L Anion Gap (6-13) BUN (6-20) mg/dL Creatinine (0.6-1.2) mg/dL Estimated GFR (MDRD) (>89) Glucose (70-100) mg/dL Glycated Hemoglobin 5.7 (4.6-6.2) % Estim Average Glucose 117 H (70-100) Lactic Acid (0.5-2.2) mmol/L Calcium (8.5-10.3) mg/dL Phosphorus (2.5-4.6) mg/dL Magnesium (1.7-2.8) mg/dL Total Bilirubin (0.2-1.0) mg/dL AST (10-42) IU/L ALT (10-60) IU/L Alkaline Phosphatase (42-121) IU/L Total Protein (6.7-8.2) g/dL Albumin (3.2-5.5) g/dL Globulin (2.1-4.2) g/dL Albumin/Globulin Ratio (1.0-2.2) Prostate Specific Ag 0.250 (0.000-2.000) ng/mL Free PSA 0.020 L (0.16-2.81) ng/mL % Free PSA Calc 8 L (25-100) % 08/17/18 08/17/18 08/17/18 Range/Units 04:30 04:30 04:30 WBC 13.9 H (4.8-10.8) x10^3/uL RBC 3.74 L (4.70-6.10) 10^6/uL Hgb 11.5 L (14.0-18.0) g/dL Hct 33.7 L (42.0-52.0) % MCV 90.1 (80.0-94.0) fL MCH 30.9 (27.0-31.0) pg MCHC 34.3 (32.0-36.0) g/dL RDW 13.5 (12.0-15.0) % Plt Count 166 (130-450) 10^3/uL MPV 7.6 (7.4-11.4) fL Neut # (Auto) 12.0 H (1.5-6.6) 10^3/uL Lymph # (Auto) 0.4 L (1.5-3.5) 10^3/uL [place] # (Auto) 1.5 H (0.0-1.0) 10^3/uL Eos # (Auto) 0.0 (0.0-0.7) 10^3/uL Baso # (Auto) 0.0 (0.0-0.1) 10^3/uL Absolute Nucleated RBC 0.00 x10^3/uL Nucleated RBC % 0.0 /100WBC VBG pH (7.31-7.41) Ionized Calcium YES (1.15-1.33) mmol/L Sodium 135 (135-145) mmol/L Potassium 3.5 (3.5-5.0) mmol/L Chloride 103 (101-111) mmol/L Carbon Dioxide 24 (21-32) mmol/L Anion Gap 8.0 (6-13) BUN 33 H (6-20) mg/dL Creatinine 0.9 (0.6-1.2) mg/dL Estimated GFR (MDRD) 80 L (>89) Glucose 133 H (70-100) mg/dL Glycated Hemoglobin (4.6-6.2) % Estim Average Glucose (70-100) Lactic Acid 0.8 (0.5-2.2) mmol/L Calcium 8.0 L (8.5-10.3) mg/dL Phosphorus 2.5 (2.5-4.6) mg/dL Magnesium 1.9 (1.7-2.8) mg/dL Total Bilirubin 1.0 (0.2-1.0) mg/dL AST 22 (10-42) IU/L ALT 14 (10-60) IU/L Alkaline Phosphatase 47 (42-121) IU/L Total Protein 5.8 L (6.7-8.2) g/dL Albumin 3.1 L (3.2-5.5) g/dL Globulin 2.7 (2.1-4.2) g/dL Albumin/Globulin Ratio 1.1 (1.0-2.2) Prostate Specific Ag (0.000-2.000) ng/mL Free PSA (0.16-2.81) ng/mL % Free PSA Calc (25-100) % ABX Reporting Has patient been on IV antibiotics over the past 48 hours?: Yes Assessment/Plan - Problem List (1) Gram-negative bacteremia Impression: Today, preliminary blood cultures grew gram negative baccilli. He was started on Rocephin, which was changed to Zosyn. He was febrile this evening with a temp max of 38.8, which he was given tylenol for. Plan: Continue IV antibiotics, and await final culture results. (2) UTI (urinary tract infection) Impression: The patient presented to the emergency department with early sepsis and generalized weakness. The patient had fever in the emergency department up to 38.7C, he was tachycardic up to heart rate of 95 and was found to have leukocytosis with a WBC count of 18.1. The patient was found to have a urinary tract infection after having a Hernandez placed a week earlier for urinary retention. The urinary tract infection may have been caused by the Hernanedz catheter, or chronic prostatitis. Labs show normal to low levels of prostate antigen, PSA today. Plan:IV antibiotics with Rocephin, await final Blood cultures and urine cultures, IV fluids Qualifiers: Urinary tract infection type: site unspecified Hematuria presence: without hematuria Qualified Code(s): N39.0 - Urinary tract infection, site not specified (3) Weakness Impression: Patient presented with generalized weakness which appears likely to be secondary to ongoing urinary tract infection and early sepsis. The patient will have his infection treated with IV fluids and an IV antibiotics. We will continue to monitor the patient's weakness which which we assume will improve with i mprovement of the infection. Plan: PT/OT to evaluate. (4) Hyperglycemia Impression: The patient does not have any history of diabetes but was hyperglycemic on presentation with a blood glucose of 148. A hemoglobin A1C was normal at 5.7%. This original elevation was likely a response to his illness. Early AM sugar today was 117. Plan: Continue daily labs. (5) BPH (benign prostatic hyperplasia) Impression: The patient has been having significant symptoms of his BPH and recently required a Hernandez catheter for urinary retention. Likely the patient's current UTI is due to placement of a Hernandez catheter or from the urinary retention. It is possible the patient may have prostatitis given the enlarged prostate. All labs including prostate antigen and PSA were normal to low. We will continue the patient's home dose of Flomax and finasteride while he is hospitalized. Plan: Continue to monitor for improvement, continue usual home meds. Qualifiers: Lower urinary tract symptom presence: symptoms present Lower urinary tract symptom detail: urinary retention Qualified Code(s): N40.1 - Benign prostatic hyperplasia with lower urinary tract symptoms; R33.8 - Other retention of urine
[2018-08-18] MEDS: SODIUM CHLORIDE FLUSH 0.9% 10 ML SYRINGE IVP SCH ×3 (01:02→19:36)
[2018-08-18] MEDS: SODIUM CHLORIDE 0.9% 1,000 ML IV SCH ×2 (01:03→11:52)
[2018-08-18] MEDS: PIPERACILLIN/TAZOBACTAM 4.5 GM in SODIUM CHLORIDE 0.9% MINIBAG 100 ML IV SCH ×4 (04:52→22:57)
[2018-08-18 05:18] LABS: ALBUMIN 2.7 g/dL (3.2-5.5); ALBUMIN/GLOBULIN RATIO 1.1 (1.0-2.2); ALKALINE PHOSPHATASE 38 IU/L (42-121); ALT ALANINE AMINOTRANSFERASE 16 IU/L (10-60); AST ASPARTATE AMINOTRANSFERASE 23 IU/L (10-42); BILIRUBIN,TOTAL 0.8 mg/dL (0.2-1.0); BUN - BLOOD UREA NITROGEN 31 mg/dL (6-20); CALCIUM 7.6 mg/dL (8.5-10.3); CARBON DIOXIDE - CO2 21 mmol/L (21-32); CHLORIDE 106 mmol/L (101-111); CREATININE 0.9 mg/dL (0.6-1.2); GFR - MDRD 80 (>89); GLUCOSE 130 mg/dL (70-100); MAGNESIUM 1.9 mg/dL (1.7-2.8); PHOSPHORUS 2.2 mg/dL (2.5-4.6); SODIUM 134 mmol/L (135-145); TOTAL PROTEIN 5.2 g/dL (6.7-8.2)
[2018-08-18 05:27] LABS: BASOPHILS % (AUTO) 0.1 %; EOSINOPHILS % (AUTO) 0.1 %; HGB - HEMOGLOBIN 10.4 g/dL (14.0-18.0); LYMPHOCYTES # (AUTO) 0.5 10^3/uL (1.5-3.5); LYMPHOCYTES % (AUTO) 4.3 %; MEAN CORPUSCULAR HGB CONC 34.2 g/dL (32.0-36.0); MEAN CORPUSCULAR VOLUME 90.7 fL (80.0-94.0); MEAN PLATELET VOLUME 7.9 fL (7.4-11.4); MONOCYTES # (AUTO) 1.2 10^3/uL (0.0-1.0); MONOCYTES % (AUTO) 11.5 %; NEUTROPHILS # (AUTO) 9.1 10^3/uL (1.5-6.6); PLT - PLATELET COUNT 142 10^3/uL (130-450); RED BLOOD COUNT 3.35 10^6/uL (4.70-6.10); RED CELL DISTRIBUTION WIDTH 13.6 % (12.0-15.0); WHITE BLOOD COUNT 10.8 x10^3/uL (4.8-10.8)
[2018-08-18 05:53] LABS: VBG PH 7.449 (7.31-7.41)
[2018-08-18] MEDS: ACETAMINOPHEN 325 MG TABLET PO PRN (06:15)
[2018-08-18] MEDS: PANTOPRAZOLE 40 MG TABLET PO SCH (06:15)
[2018-08-18] MEDS ORDERED: POTASSIUM CHLORIDE 20 MEQ TABLET PO ONE (08:31)
[2018-08-18] MEDS: TAMSULOSIN 0.4 MG CAPSULE PO SCH (08:49)
[2018-08-18] MEDS: CELECOXIB 100 MG CAPSULE PO SCH (08:49)
[2018-08-18] MEDS: FINASTERIDE 5 MG TABLET PO SCH (08:49)
[2018-08-18] MEDS: FOLIC ACID 1 MG TABLET PO SCH (08:49)
[2018-08-18] MEDS: NEUTRA-PHOS 250 MG TABLET PO SCH ×3 (08:49→16:52)
[2018-08-18] MEDS: POLYETHYLENE GLYCOL 3350 17 GM PACKET PO SCH (08:50)
[2018-08-18] MEDS: SODIUM CHLORIDE FLUSH 0.9% 10 ML SYRINGE IVP PRN (11:26)
[2018-08-18] MEDS: SACCHAROMYCES BOULARDII 250 MG CAPSULE PO SCH (16:52)
--- NOTE | 2018-08-18 17:22 | PROVIDER PROGRESS NOTE ---
Subjective - Prog Note Date Prog Note Date: 08/18/18 - Subjective Pt reports feeling: Improved Subjective: pt report he did not have fever today, he is feeling better than before. He denies other complaints. Current Medications - Current Medications Current Medications: Active Medications Acetaminophen (Tylenol) 650 mg PO Q4HR PRN PRN Reason: Pain 1 to 4 Last Admin: 08/18/18 06:15 Dose: 650 mg Celecoxib (Celebrex) 200 mg PO DAILY [facility] Last Admin: 08/18/18 08:49 Dose: 200 mg Finasteride (Proscar) 5 mg PO DAILY [facility] Last Admin: 08/18/18 08:49 Dose: 5 mg Folic Acid () 1 mg PO DAILY [facility] Last Admin: 08/18/18 08:49 Dose: 1 mg Piperacillin Sod/Tazobactam (Sod 4.5 gm/ Sodium Chloride) 100 mls @ 200 mls/hr IV Q6H [facility] Last Admin: 08/18/18 16:51 Dose: 200 mls/hr Sodium Chloride (Normal Saline 0.9%) 1,000 mls @ 75 mls/hr IV .[id number] [facility] Last Admin: 08/18/18 11:52 Dose: 75 mls/hr Ibuprofen (Motrin) 600 mg PO Q6HR PRN PRN Reason: Pain 1 to 4 Ondansetron HCl (Zofran Inj) 4 mg IVP Q6HR PRN PRN Reason: Nausea / Vomiting Oxycodone HCl (Roxicodone) 5 mg PO Q4HR PRN PRN Reason: Pain 5 to 7 Last Admin: 08/16/18 21:21 Dose: 5 mg Oxycodone HCl (Roxicodone) 10 mg PO Q4HR PRN PRN Reason: Pain 8 to 10 Pantoprazole Sodium (Protonix) 40 mg PO QDAC [facility] Last Admin: 08/18/18 06:15 Dose: 40 mg Polyethylene Glycol (Miralax) 17 gm PO DAILY [facility] Last Admin: 08/18/18 08:50 Dose: Not Given Prochlorperazine Edisylate (Compazine Inj) 10 mg IVP Q6HR PRN PRN Reason: Nausea / Vomiting Promethazine HCl (Phenergan Inj) 25 mg IM Q6HR PRN PRN Reason: Nausea / Vomiting Saccharomyces Boulardii (Florastor) 250 mg PO BIDWM [facility] Last Admin: 08/18/18 16:52 Dose: 250 mg Sodium Chloride (Normal Saline Flush 0.9%) 10 ml IVP PRN PRN PRN Reason: NEEDED PER PROVIDER ORDERS Last Admin: 08/18/18 11:26 Dose: 10 ml Sodium Chloride (Normal Saline Flush 0.9%) 10 ml IVP 0100,0900,1700 [facility] Last Admin: 08/18/18 08:50 Dose: Not Given Sodium Phosphate (K-Phos Neutral) 250 mg PO TIDWM [facility] Last Admin: 08/18/18 16:52 Dose: 250 mg Tamsulosin HCl (Flomax) 0.4 mg PO DAILY [facility] Last Admin: 08/18/18 08:49 Dose: 0.4 mg Zolpidem Tartrate (Ambien) 5 mg PO QPM PRN PRN Reason: Insomnia Multivit-Min/Calc/Biotin/D3/FA [Biotin Plus-Calcium & Vit D3] 1 each PO DAILY 03/12/14 Celecoxib [CeleBREX] 100 mg PO BIDWM 05/21/17 Finasteride [Proscar] 5 mg PO DAILY 07/11/18 Tamsulosin [Flomax] 0.4 mg PO QPM 07/11/18 Objective - Vital Signs/Intake & Output Reviewed Vital Signs: Yes Vital Signs: Vital Signs x48h Temp Pulse Resp BP BP Pulse Ox Pulse Ox 08/18/18 15:06 36.4 C L 60 18 102/54 L 99 08/18/18 10:30 116/53 L 97 Intake & Output: Intake & Output 08/15/18 08/16/18 08/17/18 08/18/18 23:59 23:59 23:59 23:59 Intake Total 200 3990 2540 Output Total 1630 2100 Balance 200 2360 440 - Objective General Appearance: positive: No acute distress, Alert. negative: Lethargic Eyes Bilateral: positive: Normal inspection, PERRL, No lid inflammation, Conjunctivae nml ENT: positive: ENT inspection nml, Pharynx nml, No signs of dehydration. negative: Purulent nasal drainage, Pharyngeal erythema, Oral lesions Neck: positive: Nml inspection, Thyroid nml, No JVD, Trachea midline. negative: Thyromegaly, Lymphadenopathy (R), Lymphadenopathy (L), Stiff neck, Swelling/br uising, Tracheal deviation Respiratory: positive: Chest non-tender, No respiratory distress, Breath sounds nml. negative: Wheezes, Rales, Rhonchi Cardiovascular: positive: Regular rate & rhythm, No murmur, No gallop. negative: Irregularly irregular, Extrasystoles, Tachycardia, Bradycardia, JVD present, Systolic murmur, Diastolic murmur Peripheral Pulses: 2+ Radial (R), 2+ Radial (L), 2+ Dorsalis pedis (R), 2+ Dorsalis pedis (L) Abdomen: positive: Non-tender, No organomegaly, Nml bowel sounds, No distention. negative: Tenderness, Guarding, Rebound Back: positive: Nml inspection. negative: CVA tenderness (R), CVA tenderness (L) Skin: positive: Color nml, No rash, Warm, Dry. negative: Cyanosis, Diaphoresis, Pallor, Skin rash Extremities: positive: Non-tender, Full ROM, Nml appearance. negative: Calf tenderness, Joint swelling, Alejandro's sign/cords Neurologic/Psychiatric: positive: Oriented x3, Motor nml, Sensation nml, Mood/affect nml. negative: Weakness, Sensory loss, Facial droop, Slurred/abnml speech, Depressed mood/affect - Lab Results Fish Bones: 08/18/18 04:45 08/18/18 04:45 Other Labs: Lab Results x24hrs 08/18/18 08/18/18 08/18/18 Range/Units 04:45 04:45 04:45 WBC (4.8-10.8) x10^3/uL RBC (4.70-6.10) 10^6/uL Hgb (14.0-18.0) g/dL Hct (42.0-52.0) % MCV (80.0-94.0) fL MCH (27.0-31.0) pg MCHC (32.0-36.0) g/dL RDW (12.0-15.0) % Plt Count (130-450) 10^3/uL MPV (7.4-11.4) fL Neut # (Auto) (1.5-6.6) 10^3/uL Lymph # (Auto) (1.5-3.5) 10^3/uL [place] # (Auto) (0.0-1.0) 10^3/uL Eos # (Auto) (0.0-0.7) 10^3/uL Baso # (Auto) (0.0-0.1) 10^3/uL Absolute Nucleated RBC x10^3/uL Nucleated RBC % /100WBC VBG pH 7.449 H (7.31-7.41) Ionized Calcium 1.06 L YES (1.15-1.33) mmol/L Sodium 134 L (135-145) mmol/L Potassium 3.0 L (3.5-5.0) mmol/L Chloride 106 (101-111) mmol/L Carbon Dioxide 21 (21-32) mmol/L Anion Gap 7.0 (6-13) BUN 31 H (6-20) mg/dL Creatinine 0.9 (0.6-1.2) mg/dL Estimated GFR (MDRD) 80 L (>89) Glucose 130 H (70-100) mg/dL Lactic Acid 0.6 (0.5-2.2) mmol/L Calcium 7.6 L (8.5-10.3) mg/dL Phosphorus 2.2 L (2.5-4.6) mg/dL Magnesium 1.9 (1.7-2.8) mg/dL Total Bilirubin 0.8 (0.2-1.0) mg/dL AST 23 (10-42) IU/L ALT 16 (10-60) IU/L Alkaline Phosphatase 38 L (42-121) IU/L Total Protein 5.2 L (6.7-8.2) g/dL Albumin 2.7 L (3.2-5.5) g/dL Globulin 2.5 (2.1-4.2) g/dL Albumin/Globulin Ratio 1.1 (1.0-2.2) 08/18/18 Range/Units 04:45 WBC 10.8 (4.8-10.8) x10^3/uL RBC 3.35 L (4.70-6.10) 10^6/uL Hgb 10.4 L (14.0-18.0) g/dL Hct 30.4 L (42.0-52.0) % MCV 90.7 (80.0-94.0) fL MCH 31.0 (27.0-31.0) pg MCHC 34.2 (32.0-36.0) g/dL RDW 13.6 (12.0-15.0) % Plt Count 142 (130-450) 10^3/uL MPV 7.9 (7.4-11.4) fL Neut # (Auto) 9.1 H (1.5-6.6) 10^3/uL Lymph # (Auto) 0.5 L (1.5-3.5) 10^3/uL [place] # (Auto) 1.2 H (0.0-1.0) 10^3/uL Eos # (Auto) 0.0 (0.0-0.7) 10^3/uL Baso # (Auto) 0.0 (0.0-0.1) 10^3/uL Absolute Nucleated RBC 0.00 x10^3/uL Nucleated RBC % 0.0 /100WBC VBG pH (7.31-7.41) Ionized Calcium (1.15-1.33) mmol/L Sodium (135-145) mmol/L Potassium (3.5-5.0) mmol/L Chloride (101-111) mmol/L Carbon Dioxide (21-32) mmol/L Anion Gap (6-13) BUN (6-20) mg/dL Creatinine (0.6-1.2) mg/dL Estimated GFR (MDRD) (>89) Glucose (70-100) mg/dL Lactic Acid (0.5-2.2) mmol/L Calcium (8.5-10.3) mg/dL Phosphorus (2.5-4.6) mg/dL Magnesium (1.7-2.8) mg/dL Total Bilirubin (0.2-1.0) mg/dL AST (10-42) IU/L ALT (10-60) IU/L Alkaline Phosphatase (42-121) IU/L Total Protein (6.7-8.2) g/dL Albumin (3.2-5.5) g/dL Globulin (2.1-4.2) g/dL Albumin/Globulin Ratio (1.0-2.2) ABX Reporting Has patient been on IV antibiotics over the past 48 hours?: Yes Assessment/Plan - Problem List (1) Gram-negative bacteremia Impression: Impression: 08/18 no fever today, but pt had fever on last night. continue antibiotics, follow blood culture sensitivity study closely monitor pt, if pt continue to have fever, will blood culture again continue IVF of NS Today, preliminary blood cultures grew gram negative baccilli. He was started on Rocephin, which was changed to Zosyn. He was febrile this evening with a temp max of 38.8, which he was given tylenol for. Plan: Continue IV antibiotics, and await final culture results. (2) UTI (urinary tract infection) Impression: follow up sensitivity study of UA continue zosyn continue Hernandez care The patient presented to the emergency department with early sepsis and generalized weakness. The patient had fever in the emergency department up to 38.7C, he was tachycardic up to heart rate of 95 and was found to have leukocytosis with a WBC count of 18.1. The patient was found to have a urinary tract infection after having a Hernandez placed a week earlier for urinary retention. The urinary tract infection may have been caused by the Hernandez catheter, or chronic prostatitis. Labs show normal to low levels of prostate antigen, PSA today. Plan:IV antibiotics with Rocephin, await final Blood cultures and urine cult ures, IV fluids (3) Weakness Impression: continue PT/OT, follow up recommendation Patient presented with generalized weakness which appears likely to be secondary to ongoing urinary tract infection and early sepsis. The patient will have his infection treated with IV fluids and an IV antibiotics. We will continue to monitor the patient's weakness which which we assume will improve with improvement of the infection. Plan: PT/OT to evaluate. (4) Hyperglycemia Impression: The patient does not have any history of diabetes but was hyperglycemic on presentation with a blood glucose of 148. A hemoglobin A1C was normal at 5.7%. This original elevation was likely a response to his illness. Early AM sugar today was 117. Plan: Continue daily labs. (5) BPH (benign prostatic hyperplasia) Impression: 08/18 discuss with pt and his , advise pt follow up his urologist as out-pt continue home meds continue Hernandez care The patient has been having significant symptoms of his BPH and recently required a Hernandez catheter for urinary retention. Likely the patient's current UTI is due to placement of a Hernandez catheter or from the urinary retention. It is possible the patient may have prostatitis given the enlarged prostate. All labs including prostate antigen and PSA were normal to low. We will continue the patient's home dose of Flomax and finasteride while he is hospitalized. Plan: Continue to monitor for improvement, continue usual home meds.
[2018-08-19] MEDS: SODIUM CHLORIDE FLUSH 0.9% 10 ML SYRINGE IVP SCH ×3 (01:06→17:14)
[2018-08-19] MEDS: SODIUM CHLORIDE 0.9% 1,000 ML IV SCH (02:19)
[2018-08-19] MEDS: PIPERACILLIN/TAZOBACTAM 4.5 GM in SODIUM CHLORIDE 0.9% MINIBAG 100 ML IV SCH ×4 (04:55→23:15)
[2018-08-19 05:19] LABS: BASOPHILS # (AUTO) 0.1 10^3/uL (0.0-0.1); BASOPHILS % (AUTO) 0.8 %; EOSINOPHILS # (AUTO) 0.1 10^3/uL (0.0-0.7); EOSINOPHILS % (AUTO) 1.5 %; HGB - HEMOGLOBIN 10.5 g/dL (14.0-18.0); LYMPHOCYTES # (AUTO) 0.3 10^3/uL (1.5-3.5); LYMPHOCYTES % (AUTO) 4.9 %; MEAN CORPUSCULAR HEMOGLOBIN 31.1 pg (27.0-31.0); MEAN CORPUSCULAR HGB CONC 34.6 g/dL (32.0-36.0); MEAN PLATELET VOLUME 7.7 fL (7.4-11.4); MONOCYTES # (AUTO) 0.9 10^3/uL (0.0-1.0); MONOCYTES % (AUTO) 13.3 %; NEUTROPHILS # (AUTO) 5.6 10^3/uL (1.5-6.6); NEUTROPHILS % (AUTO) 79.5 %; PLT - PLATELET COUNT 159 10^3/uL (130-450); RED BLOOD COUNT 3.37 10^6/uL (4.70-6.10); RED CELL DISTRIBUTION WIDTH 13.4 % (12.0-15.0)
[2018-08-19 05:26] LABS: ALBUMIN 2.5 g/dL (3.2-5.5); ALBUMIN/GLOBULIN RATIO 0.9 (1.0-2.2); ALKALINE PHOSPHATASE 36 IU/L (42-121); ALT ALANINE AMINOTRANSFERASE 17 IU/L (10-60); AST ASPARTATE AMINOTRANSFERASE 21 IU/L (10-42); BILIRUBIN,TOTAL 0.5 mg/dL (0.2-1.0); BUN - BLOOD UREA NITROGEN 23 mg/dL (6-20); CALCIUM 7.5 mg/dL (8.5-10.3); CARBON DIOXIDE - CO2 23 mmol/L (21-32); CHLORIDE 107 mmol/L (101-111); CREATININE 0.7 mg/dL (0.6-1.2); GFR - MDRD 107 (>89); GLUCOSE 120 mg/dL (70-100); PHOSPHORUS 2.2 mg/dL (2.5-4.6); SODIUM 137 mmol/L (135-145); TOTAL PROTEIN 5.3 g/dL (6.7-8.2)
[2018-08-19 05:44] LABS: VBG PH 7.478 (7.31-7.41)
[2018-08-19] MEDS: PANTOPRAZOLE 40 MG TABLET PO SCH (06:35)
[2018-08-19] MEDS ORDERED: POTASSIUM CHLORIDE 20 MEQ TABLET PO ONE (07:49)
[2018-08-19] MEDS: NEUTRA-PHOS 250 MG TABLET PO SCH ×3 (10:14→17:12)
[2018-08-19] MEDS: SACCHAROMYCES BOULARDII 250 MG CAPSULE PO SCH ×2 (10:15→17:12)
[2018-08-19] MEDS: CELECOXIB 100 MG CAPSULE PO SCH (10:15)
[2018-08-19] MEDS: POLYETHYLENE GLYCOL 3350 17 GM PACKET PO SCH (10:17)
[2018-08-19] MEDS: FINASTERIDE 5 MG TABLET PO SCH (10:17)
[2018-08-19] MEDS: FOLIC ACID 1 MG TABLET PO SCH (10:17)
[2018-08-19] MEDS: TAMSULOSIN 0.4 MG CAPSULE PO SCH (10:18)
--- NOTE | 2018-08-19 13:32 | PROVIDER PROGRESS NOTE ---
Subjective - Prog Note Date Prog Note Date: 08/19/18 - Subjective Pt reports feeling: Improved Subjective: pt denies fever, chill, cough, SOB. pt report he feel better, no other complaints. Pt's blood culture sensitivity study is pending. pt had 24 hours a fter febrile. Current Medications - Current Medications Current Medications: Active Medications Acetaminophen (Tylenol) 650 mg PO Q4HR PRN PRN Reason: Pain 1 to 4 Last Admin: 08/18/18 06:15 Dose: 650 mg Celecoxib (Celebrex) 200 mg PO DAILY [facility] Last Admin: 08/19/18 10:15 Dose: 200 mg Finasteride (Proscar) 5 mg PO DAILY [facility] Last Admin: 08/19/18 10:17 Dose: 5 mg Folic Acid () 1 mg PO DAILY [facility] Last Admin: 08/19/18 10:17 Dose: 1 mg Piperacillin Sod/Tazobactam (Sod 4.5 gm/ Sodium Chloride) 100 mls @ 200 mls/hr IV Q6H [facility] Last Infusion: 08/19/18 11:59 Dose: Infused Ibuprofen (Motrin) 600 mg PO Q6HR PRN PRN Reason: Pain 1 to 4 Ondansetron HCl (Zofran Inj) 4 mg IVP Q6HR PRN PRN Reason: Nausea / Vomiting Oxycodone HCl (Roxicodone) 5 mg PO Q4HR PRN PRN Reason: Pain 5 to 7 Last Admin: 08/16/18 21:21 Dose: 5 mg Oxycodone HCl (Roxicodone) 10 mg PO Q4HR PRN PRN Reason: Pain 8 to 10 Pantoprazole Sodium (Protonix) 40 mg PO QDAC [facility] Last Admin: 08/19/18 06:35 Dose: 40 mg Polyethylene Glycol (Miralax) 17 gm PO DAILY [facility] Last Admin: 08/19/18 10:17 Dose: Not Given Prochlorperazine Edisylate (Compazine Inj) 10 mg IVP Q6HR PRN PRN Reason: Nausea / Vomiting Promethazine HCl (Phenergan Inj) 25 mg IM Q6HR PRN PRN Reason: Nausea / Vomiting Saccharomyces Boulardii (Florastor) 250 mg PO BIDWM [facility] Last Admin: 08/19/18 10:15 Dose: 250 mg Sodium Chloride (Normal Saline Flush 0.9%) 10 ml IVP PRN PRN PRN Reason: NEEDED PER PROVIDER ORDERS Last Admin: 08/18/18 11:26 Dose: 10 ml Sodium Chloride (Normal Saline Flush 0.9%) 10 ml IVP 0100,0900,1700 [facility] Last Admin: 08/19/18 10:18 Dose: Not Given Sodium Phosphate (K-Phos Neutral) 250 mg PO TIDWM [facility] Last Admin: 08/19/18 12:12 Dose: 250 mg Tamsulosin HCl (Flomax) 0.4 mg PO DAILY [facility] Last Admin: 08/19/18 10:18 Dose: 0.4 mg Zolpidem Tartrate (Ambien) 5 mg PO QPM PRN PRN Reason: Insomnia Multivit-Min/Calc/Biotin/D3/FA [Biotin Plus-Calcium & Vit D3] 1 each PO DAILY 03/12/14 Celecoxib [CeleBREX] 100 mg PO BIDWM 05/21/17 Finasteride [Proscar] 5 mg PO DAILY 07/11/18 Tamsulosin [Flomax] 0.4 mg PO QPM 07/11/18 Objective - Vital Signs/Intake & Output Reviewed Vital Signs: Yes Vital Signs: Vital Signs x48h Temp Pulse Resp BP Pulse Ox 08/19/18 07:53 36.5 C 74 19 124/70 95 Intake & Output: Intake & Output 08/16/18 08/17/18 08/18/18 08/19/18 23:59 23:59 23:59 23:59 Intake Total 200 3990 3080 1200 Output Total 1630 3400 1200 Balance 200 2360 -320 0 - Objective General Appearance: positive: No acute distress, Alert. negative: Lethargic Eyes Bilateral: positive: Normal inspection, PERRL, No lid inflammation, Conjunctivae nml ENT: positive: ENT inspection nml, Pharynx nml, No signs of dehydration. negative: Purulent nasal drainage, Pharyngeal erythema, Oral lesions Neck: positive: Nml inspection, Thyroid nml, No JVD, Trachea midline. negative: Thyromegaly, Lymphadenopathy (R), Lymphadenopathy (L), Stiff neck, Swelling/bruising, Tracheal deviation Respiratory: positive: Chest non-tender, No respiratory distress, Breath sounds nml. negative: Wheezes, Rales, Rhonchi Cardiovascular: positive: Regular rate & rhythm, No murmur, No gallop. negative: Irregularly irregular, Extrasystoles, Tachycardia, Bradycardia, JVD present, Systolic murmur, Diastolic murmur Peripheral Pulses: 2+ Radial (R), 2+ Radial (L), 2+ Dorsalis pedis (R), 2+ Dorsalis pedis (L) Abdomen: positive: Non-tender, No organomegaly, Nml bowel sounds, No distention. negative: Tenderness, Guarding, Rebound Back: positive: Nml inspection. negative: CVA tenderness (R), CVA tenderness (L) Skin: positive: Color nml, No rash, Warm, Dry. negative: Cyanosis, Diaphoresis, Pallor Extremities: positive: Non-tender, Full ROM, Nml appearance. negative: Calf tenderness, Joint swelling, Alejandro's sign/cords Neurologic/Psychiatric: positive: Oriented x3, Motor nml, Sensation nml, Mood/affect nml. negative: Weakness, Sensory loss, Facial droop, Slurred/abnml speech, Depressed mood/affect - Lab Results Fish Bones: 08/19/18 05:00 08/19/18 05:00 Other Labs: Lab Results x24hrs 08/19/18 08/19/18 08/19/18 Range/Units 05:00 05:00 05:00 WBC (4.8-10.8) x10^3/uL RBC (4.70-6.10) 10^6/uL Hgb (14.0-18.0) g/dL Hct (42.0-52.0) % MCV (80.0-94.0) fL MCH (27.0-31.0) pg MCHC (32.0-36.0) g/dL RDW (12.0-15.0) % Plt Count (130-450) 10^3/uL MPV (7.4-11.4) fL Neut # (Auto) (1.5-6.6) 10^3/uL Lymph # (Auto) (1.5-3.5) 10^3/uL [place] # (Auto) (0.0-1.0) 10^3/uL Eos # (Auto) (0.0-0.7) 10^3/uL Baso # (Auto) (0.0-0.1) 10^3/uL Absolute Nucleated RBC x10^3/uL Nucleated RBC % /100WBC VBG pH 7.478 H (7.31-7.41) Ionized Calcium 1.05 L YES (1.15-1.33) mmol/L Sodium 137 (135-145) mmol/L Potassium 3.3 L (3.5-5.0) mmol/L Chloride 107 (101-111) mmol/L Carbon Dioxide 23 (21-32) mmol/L Anion Gap 7.0 (6-13) BUN 23 H (6-20) mg/dL Creatinine 0.7 (0.6-1.2) mg/dL Estimated GFR (MDRD) 107 (>89) Glucose 120 H (70-100) mg/dL Lactic Acid 0.8 (0.5-2.2) mmol/L Calcium 7.5 L (8.5-10.3) mg/dL Phosphorus 2.2 L (2.5-4.6) mg/dL Magnesium 2.0 (1.7-2.8) mg/dL Total Bilirubin 0.5 (0.2-1.0) mg/dL AST 21 (10-42) IU/L ALT 17 (10-60) IU/L Alkaline Phosphatase 36 L (42-121) IU/L Total Protein 5.3 L (6.7-8.2) g/dL Albumin 2.5 L (3.2-5.5) g/dL Globulin 2.8 (2.1-4.2) g/dL Albumin/Globulin Ratio 0.9 L (1.0-2.2) 08/19/18 Range/Units 05:00 WBC 7.0 (4.8-10.8) x10^3/uL RBC 3.37 L (4.70-6.10) 10^6/uL Hgb 10.5 L (14.0-18.0) g/dL Hct 30.3 L (42.0-52.0) % MCV 90.0 (80.0-94.0) fL MCH 31.1 H (27.0-31.0) pg MCHC 34.6 (32.0-36.0) g/dL RDW 13.4 (12.0-15.0) % Plt Count 159 (130-450) 10^3/uL MPV 7.7 (7.4-11.4) fL Neut # (Auto) 5.6 (1.5-6.6) 10^3/uL Lymph # (Auto) 0.3 L (1.5-3.5) 10^3/uL [place] # (Auto) 0.9 (0.0-1.0) 10^3/uL Eos # (Auto) 0.1 (0.0-0.7) 10^3/uL Baso # (Auto) 0.1 (0.0-0.1) 10^3/uL Absolute Nucleated RBC 0.01 x10^3/uL Nucleated RBC % 0.1 /100WBC VBG pH (7.31-7.41) Ionized Calcium (1.15-1.33) mmol/L Sodium (135-145) mmol/L Potassium (3.5-5.0) mmol/L Chloride (101-111) mmol/L Carbon Dioxide (21-32) mmol/L Anion Gap (6-13) BUN (6-20) mg/dL Creatinine (0.6-1.2) mg/dL Estimated GFR (MDRD) (>89) Glucose (70-100) mg/dL Lactic Acid (0.5-2.2) mmol/L Calcium (8.5-10.3) mg/dL Phosphorus (2.5-4.6) mg/dL Magnesium (1.7-2.8) mg/dL Total Bilirubin (0.2-1.0) mg/dL AST (10-42) IU/L ALT (10-60) IU/L Alkaline Phosphatase (42-121) IU/L Total Protein (6.7-8.2) g/dL Albumin (3.2-5.5) g/dL Globulin (2.1-4.2) g/dL Albumin/Globulin Ratio (1.0-2.2) ABX Reporting Has patient been on IV antibiotics over the past 48 hours?: Yes Assessment/Plan - Problem List (1) Gram-negative bacteremia Impression: Impression: 08/19 sensitivity study is pending, continue Zosyn. pt has been no fever for 24 hours WBC is 7 from 18 08/18 no fever today, but pt had fever on last night. continue antibiotics, follow blood culture sensitivity study closely monitor pt, if pt continue to have fever, will blood culture again continue IVF of NS Today, preliminary blood cultures grew gram negative baccilli. He was started on Rocephin, which was changed to Zosyn. He was febrile this evening with a temp max of 38.8, which he was given tylenol for. Plan: Continue IV antibiotics, and await final culture results. (2) UTI (urinary tract infection) Impression: follow up sensitivity study of UA continue zosyn continue Hernandez care The patient presented to the emergency department with early sepsis and generalized weakness. The patient had fever in the emergency department up to 38.7C, he was tachycardic up to heart rate of 95 and was found to have leukocytosis with a WBC count of 18.1. The patient was found to have a urinary tract infection after having a Hernandez placed a week earlier for urinary retention. The urinary tract infection may have been caused by the Hernandez catheter, or chronic prostatitis. Labs show normal to low levels of prostate antigen, PSA today. Plan:IV antibiotics with Rocephin, await final Blood cultures and urine cultures, IV fluids (3) Weakness Impression: 08/19 PT/OT recommend pt home health PT, follow up continue PT/OT, follow up recommendation Patient presented with generalized weakness which appears likely to be secondary to ongoing urinary tract infection and early sepsis. The patient will have his infection treated with IV fluids and an IV antibiotics. We will continue to monitor the patient's weakness which which we assume will improve with improve ment of the infection. Plan: PT/OT to evaluate. (4) Hyperglycemia Impression: resolved The patient does not have any history of diabetes but was hyperglycemic on presentation with a blood glucose of 148. A hemoglobin A1C was normal at 5.7%. This original elevation was likely a response to his illness. Early AM sugar today was 117. Plan: Continue daily labs. (5) BPH (benign prostatic hyperplasia) Impression: 08/19, no new complaints, follow up his urologist as out-pt 08/18 discuss with pt and his , advise pt follow up his urologist as out-pt continue home meds continue Hernanedz care The patient has been having significant symptoms of his BPH and recently required a Hernandez catheter for urinary retention. Likely the patient's current UTI is due to placement of a Hernandez catheter or from the urinary retention. It is possible the patient may have prostatitis given the enlarged prostate. All labs including prostate antigen and PSA were normal to low. We will continue the patient's home dose of Flomax and finasteride while he is hospitalized. Plan: Continue to monitor for improvement, continue usual home meds.
[2018-08-19] MEDS: SODIUM CHLORIDE FLUSH 0.9% 10 ML SYRINGE IVP PRN ×2 (17:49→23:15)
[2018-08-20] MEDS: PIPERACILLIN/TAZOBACTAM 4.5 GM in SODIUM CHLORIDE 0.9% MINIBAG 100 ML IV SCH ×2 (04:30→11:16)
[2018-08-20] MEDS: SODIUM CHLORIDE FLUSH 0.9% 10 ML SYRINGE IVP SCH ×2 (04:31→09:14)
[2018-08-20 05:14] LABS: BASOPHILS % (AUTO) 0.4 %; EOSINOPHILS # (AUTO) 0.2 10^3/uL (0.0-0.7); EOSINOPHILS % (AUTO) 3.1 %; HGB - HEMOGLOBIN 10.4 g/dL (14.0-18.0); LYMPHOCYTES # (AUTO) 0.8 10^3/uL (1.5-3.5); LYMPHOCYTES % (AUTO) 14.8 %; MEAN CORPUSCULAR HEMOGLOBIN 31.1 pg (27.0-31.0); MEAN CORPUSCULAR HGB CONC 34.7 g/dL (32.0-36.0); MEAN CORPUSCULAR VOLUME 89.6 fL (80.0-94.0); MEAN PLATELET VOLUME 7.4 fL (7.4-11.4); NEUTROPHILS # (AUTO) 3.6 10^3/uL (1.5-6.6); NEUTROPHILS % (AUTO) 64.7 %; PLT - PLATELET COUNT 181 10^3/uL (130-450); RED BLOOD COUNT 3.35 10^6/uL (4.70-6.10); RED CELL DISTRIBUTION WIDTH 13.6 % (12.0-15.0); WHITE BLOOD COUNT 5.6 x10^3/uL (4.8-10.8)
[2018-08-20 05:24] LABS: ALBUMIN 2.5 g/dL (3.2-5.5); ALBUMIN/GLOBULIN RATIO 0.9 (1.0-2.2); ALKALINE PHOSPHATASE 38 IU/L (42-121); ALT ALANINE AMINOTRANSFERASE 19 IU/L (10-60); AST ASPARTATE AMINOTRANSFERASE 20 IU/L (10-42); BILIRUBIN,TOTAL 0.6 mg/dL (0.2-1.0); BUN - BLOOD UREA NITROGEN 18 mg/dL (6-20); CALCIUM 7.8 mg/dL (8.5-10.3); CARBON DIOXIDE - CO2 24 mmol/L (21-32); CHLORIDE 108 mmol/L (101-111); CREATININE 0.8 mg/dL (0.6-1.2); GFR - MDRD 92 (>89); GLUCOSE 109 mg/dL (70-100); MAGNESIUM 1.9 mg/dL (1.7-2.8); SODIUM 140 mmol/L (135-145); TOTAL PROTEIN 5.2 g/dL (6.7-8.2)
[2018-08-20 05:30] LABS: VBG PH 7.463 (7.31-7.41)
[2018-08-20] MEDS: PANTOPRAZOLE 40 MG TABLET PO SCH (06:20)
[2018-08-20] MEDS ORDERED: POTASSIUM CHLORIDE 20 MEQ TABLET PO ONE (07:45)
[2018-08-20] MEDS: SACCHAROMYCES BOULARDII 250 MG CAPSULE PO SCH (08:13)
[2018-08-20] MEDS: NEUTRA-PHOS 250 MG TABLET PO SCH ×2 (08:14→11:18)
[2018-08-20] MEDS ORDERED: ENOXAPARIN 40 MG/0.4 ML SYRINGE SUBQ SCH (09:00)
[2018-08-20] MEDS: CELECOXIB 100 MG CAPSULE PO SCH (09:12)
[2018-08-20] MEDS: TAMSULOSIN 0.4 MG CAPSULE PO SCH (09:12)
[2018-08-20] MEDS: FINASTERIDE 5 MG TABLET PO SCH (09:13)
[2018-08-20] MEDS: POLYETHYLENE GLYCOL 3350 17 GM PACKET PO SCH (09:14)
[2018-08-20] MEDS: FOLIC ACID 1 MG TABLET PO SCH (09:14)
--- NOTE | 2018-08-20 10:32 | Discharge Plan ---
Discharge Plan Disposition: Home, Self Care Condition: Poor Prescriptions: Ciprofloxacin [Cipro] 500 mg PO Q12H #28 tablet Diet: Regular Activity Restrictions: Activity as Tolerated Shower Restrictions: No (fall precaution) Instruction Topics: UTI, ED Bacteremia Rule Out Ch Additional Instructions or Follow Up instructions: You may follow up your PCP in one week, follow up your urologist as out-pt. Should your symptoms return or worsen, you may present ER or call 911 for help. Follow-Up Care: Home Health - RN, Home Health - PT No Smoking: If you smoke, Please STOP! Call for help. Follow-up with: Johnathon Merino MD [Primary Care Provider] -
--- NOTE | 2018-08-20 10:40 | DISCHARGE SUMMARY ---
Discharge Summary Discharge Date: 08/20/18 Discharging Provider: DÍAZ Primary Care Provider: Dr. Johnathon Merino Condition at Discharge: Poor Discharge Disposition: Home, Self Care Discharge Facility Name: home - DIAGNOSES Admission Diagnoses: (1) UTI (urinary tract infection) (2) Weakness (3) Hyperglycemia (4) BPH (benign prostatic hyperplasia) (5) Osteoarthritis Discharge Diagnoses with Status of Each Condition: (1) Gram-negative bacteremia pt has been no fever or chill over 48 hours. WBC is 5.6 from 18 at his admission. sensitivity study of blood culture shows sensitivity to Cipro. prescribe Cipro to home to finish the antibiotics course. (2) UTI (urinary tract infection) continue Cipro to home to finish the antibiotics course. (3) Weakness great improved. home PT is arranged to pt (4) Hyperglycemia resolved (5) BPH (benign prostatic hyperplasia) continue home regimen, follow up urologist closely pt was carried Hernandez catheter in home after he visited ER. Nurse report she did twice bladder scan to pt, pt remain urine in bladder over 400 ml on each time, and pt presented difficult to urinate. nurse educate Hernandez care, and home health RN is arranged for pt. Please Follow up pt's urologist for further care. - HPI History of Present Illness: refer from Dr. 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 The patient states that his symptoms have been going on for almost 1 month now where he is felt increasingly weak. He states that about 3 weeks ago he began having difficulty urinating. He had urinary retention and was seen in the emergency department where he had a Hernandez catheter placed for his urinary retention. About 1 week ago the Hernandez catheter was removed and after removal of the Hernandez catheter the patient started to notice that he had dysuria and fevers. He states that over the course of the next week he became increasingly weak. The patient states that today he was so weak that he could not even stand up. He states that he was having a difficult time standing from a sitting position and finally decided he needed to come in to the emergency department. The patient states that he has noticed that he has had fevers and chills for the last 3 days and significantly increasing generalized weakness over the last 3 days. He denies any chest pain, cough, shortness of air, abdominal pain, nausea, vomiting, diarrhea, constipation, back pain, neck stiffness, night sweats or any focal neurologic deficits. On presentation to the emergency department the patient was febrile with a t emperature of 37.7 and had a T-max in the emergency department of 38.7, he was tachycardic with a heart rate of 92 and otherwise was normotensive and had no respiratory distress. The patient underwent routine lab work which revealed a leukocytosis of 18.1, mild anemia of 12.6 and mild hyperglycemia with a blood glucose of 148. The remainder of the patient's electrolytes were all within normal limits. The patient had no elevation his lactic acid. The patient's troponin was less than 0.04. The patient's urinalysis did reveal large occult blood with positive nitrite and large leukocyte estrase along with greater than 25 WBCs and many bacteria. These findings were consistent with a urinary tract infection. The patient appeared to have a complicated UTI given his early sepsis type picture in the setting of a history of BPH. The patient was admitted to the [facility] for treatment of urinary tract infection with IV antibiotics, IV fluids and physical therapy. - ALLERGIES Allergies/Adverse Reactions: Allergies Allergy/AdvReac Type Severity Reaction Status Date / Time No Known Drug Allergies Allergy Verified 08/16/18 14:01 - MEDICATIONS Home Medications: Ambulatory Orders Medication Instructions Recorded Confirmed Multivit-Min/Calc/Biotin/D3/FA 1 each PO DAILY 03/12/14 08/17/18 [Biotin Plus-Calcium & Vit D3] Celecoxib [CeleBREX] 100 mg PO BIDWM 05/21/17 08/17/18 Finasteride [Proscar] 5 mg PO DAILY 07/11/18 08/17/18 Tamsulosin [Flomax] 0.4 mg PO QPM 07/11/18 08/17/18 Ciprofloxacin [Cipro] 500 mg PO Q12H #28 tablet 08/20/18 - PHYSICAL EXAM AT DISCHARGE General Appearance: positive: No acute distress, Alert. negative: Lethargic Eyes Bilateral: positive: Normal inspection, PERRL, No lid inflammation, Conjunctivae nml ENT: positive: ENT inspection nml, Pharynx nml, No signs of dehydration. negative: Purulent nasal drainage, Pharyngeal erythema, Oral lesions Neck: positive: Nml inspection, Thyroid nml, No JVD, Trachea midline. negative: Thyromegaly, Lymphadenopathy (R), Lymphadenopathy (L), Stiff neck, Swelling/bruising, Tracheal deviation Respiratory: positive: Chest non-tender, No respiratory distress, Breath sounds nml. negative: Wheezes, Rales, Rhonchi Cardiovascular: positive: Regular rate & rhythm, No murmur, No gallop. negative: Irregularly irregular, Extrasystoles, Tachycardia, Bradycardia, JVD present, Systolic murmur, Diastolic murmur Peripheral Pulses: positive: 2+ Abdomen: positive: Non-tender, No organomegaly, Nml bowel sounds, No distention. negative: Tenderness, Guarding, Rebound Back: positive: Nml inspection. negative: CVA tenderness (R), CVA tenderness (L) Skin: positive: Color nml, No rash, Warm, Dry. negative: Cyanosis, Diaphoresis, Pallor Extremities: positive: Non-tender, Full ROM, Nml appearance. negative: Calf ten derness, Joint swelling, Alejandro's sign/cords Neurologic/Psychiatric: positive: Oriented x3, Sensation nml, Mood/affect nml. negative: Weakness, Sensory loss, Facial droop, Slurred/abnml speech, Depressed mood/affect - LABS Result Diagrams: 08/20/18 05:00 08/20/18 05:00 - FOLLOW UP Follow Up: You may follow up your PCP in one week, follow up your urologist as out-pt. Should your symptoms return or worsen, you may present ER or call 911 for help. - TIME SPENT Time Spent in Discharge (Minutes): 50
[2018-08-20 11:00] VITALS: BP 115/63
== END 2018-08-20 11:49 | disposition home health service (06) | DRG 699 ==
LOC: ED 13:36 → MS3 18:40 → OBSVTOIN 18:41
PROVIDERS: ADMIT Nurse Practitioner; ATTEND Nurse Practitioner Gerontology
DX: T83.511A Infection and inflammatory reaction due to indwelling urethral catheter, initial encounter (principal); R53.1 Weakness; R78.81 Bacteremia; G91.9 Hydrocephalus, unspecified; Y73.1 Therapeutic (nonsurgical) and rehabilitative gastroenterology and urology devices associated with adverse incidents; Y92.238 Other place in hospital as the place of occurrence of the external cause; R73.9 Hyperglycemia, unspecified; N40.1 Benign prostatic hyperplasia with lower urinary tract symptoms; R33.8 Other retention of urine; H35.30 Unspecified macular degeneration; M19.90 Unspecified osteoarthritis, unspecified site; M81.0 Age-related osteoporosis without current pathological fracture; Z96.89 Presence of other specified functional implants; Z87.891 Personal history of nicotine dependence
CPT/HCPCS: 36415; 71046; 80048; 80053; 81001; 81003; 82330; 83036; 83605; 83735; 84100; 84154; 84484; 85025; 87040; 87077; 87086; 87181; 96365; 99283; 99284

== ENCOUNTER 2018-09-02 08:00 | Outpatient (CLI) | payer MEDICARE, OTHER | END 2018-09-02 08:01 | disposition home or self-care (01) | LOC: LAB.F 08:00 | PROVIDERS: ATTEND Internal Medicine | DX: R19.7 Diarrhea, unspecified (principal) | CPT/HCPCS: 87493 ==

== ENCOUNTER 2018-09-22 12:00 | Outpatient (CLI) | payer MEDICARE, OTHER | END 2018-09-22 12:01 | LOC: LAB.R 12:00 | PROVIDERS: ATTEND Urology | DX: N40.1 Benign prostatic hyperplasia with lower urinary tract symptoms (principal); R33.8 Other retention of urine | CPT/HCPCS: 87086 ==

== ENCOUNTER 2018-10-18 09:10 | Outpatient (CLI) | payer MEDICARE, OTHER | END 2018-10-18 09:11 | disposition home or self-care (01) | LOC: LAB.R 09:10 | PROVIDERS: ATTEND Physician Assistant Medical | DX: R19.7 Diarrhea, unspecified (principal) | CPT/HCPCS: 81599; 82270; 82705; 83630; 87045; 87046; 87177; 87209; 87329; 87493 ==

== ENCOUNTER 2018-10-18 12:07 | Outpatient (CLI) | payer MEDICARE, OTHER | END 2018-10-18 12:08 | disposition home or self-care (01) | LOC: LAB.F 12:07 | PROVIDERS: ATTEND Physician Assistant Medical | DX: R19.7 Diarrhea, unspecified (principal) ==

== ENCOUNTER 2018-11-20 15:56 | Outpatient (CLI) | payer MEDICARE, OTHER ==
--- NOTE | 2018-11-21 09:57 | Ultrasound Report ---
Reason: MALABSORPTION, DIARRHEA, ACUTE Procedure Date: 11/20/2018 Accession Number: [id number] / [id number] Procedure: US - Abdomen Complete CPT Code: FULL RESULT: EXAM: ABDOMEN ULTRASOUND EXAM DATE: 11/20/2018 11:31 AM. CLINICAL HISTORY: Malabsorption, diarrhea, acute. COMPARISON: Renal ultrasound. TECHNIQUE: Real-time scanning was performed with static images obtained. FINDINGS: The exam is limited due to limited acoustical windows and obscuring bowel gas. Liver: Limited visualization due to small acoustical windows and also due to overlying bowel gas. The visualized portion is normal in size and echotexture. 14.8 cm. Main portal vein flow: Hepatopetal. Gallbladder: Surgically absent. Biliary System: Common bile duct measures 3.5 mm. No intrahepatic or extrahepatic ductal dilatation. Pancreas: Not visualized due to obscuring bowel gas. Kidneys: Right: 12.0 cm longitudinally. No hydronephrosis, stones or definite masses. Multiple cysts again demonstrated. The largest represents an exophytic simple cyst measuring up to 4.1 cm. There is also a partially exophytic complex cystic lesion at the medial, mid aspect of the kidney measuring 3.7 x 2.7 x 3.0 cm, previously 2.3 x 2.6 x 2.2 cm. It again demonstrates multiple septations. No definite internal vascularity or mural nodules. Left: 11.8 cm longitudinally. No stones, hydronephrosis or definite masses. Simple 2.8 cm cyst. Spleen: Poorly visualized. Maximum demonstrated dimension 5.9 cm although the entirety may not be visualized. Normal in size and echotexture to the degree to which it is visualized. Aorta and Inferior Vena Cava: Proximal abdominal aorta is obscured. The mid and distal abdominal aorta and the visualized IVC are unremarkable. Other: No free fluid. IMPRESSION: 1. The exam is limited, as discussed above. 2. Status post cholecystectomy. 3. Bilateral renal cysts. A complex right renal cystic lesion has increased, measuring 3.7 cm compared with 2.6 cm in 2007. This likely is benign but if further evaluation were indicated, dedicated renal CT imaging with and without contrast would be recommended. RAD[facility]
== END 2018-11-20 23:59 ==
LOC: DI 15:56
PROVIDERS: ATTEND Physician Assistant Medical
DX: K90.9 Intestinal malabsorption, unspecified (principal); R19.7 Diarrhea, unspecified; N28.1 Cyst of kidney, acquired; Z90.49 Acquired absence of other specified parts of digestive tract
CPT/HCPCS: 76700

== ENCOUNTER 2018-11-28 11:15 | Outpatient (CLI) | payer MEDICARE, OTHER ==
[2018-11-28] MEDS ORDERED: IOVERSOL 320 50 ML VIAL ONE (11:37)
[2018-11-28 11:38] LABS: BASOPHILS % (AUTO) 0.4 %; EOSINOPHILS # (AUTO) 0.1 10^3/uL (0.0-0.7); EOSINOPHILS % (AUTO) 1.1 %; HGB - HEMOGLOBIN 12.5 g/dL (14.0-18.0); LYMPHOCYTES # (AUTO) 0.7 10^3/uL (1.5-3.5); LYMPHOCYTES % (AUTO) 14.1 %; MEAN CORPUSCULAR HEMOGLOBIN 30.9 pg (27.0-31.0); MEAN CORPUSCULAR HGB CONC 34.4 g/dL (32.0-36.0); MEAN CORPUSCULAR VOLUME 89.6 fL (80.0-94.0); MEAN PLATELET VOLUME 7.5 fL (7.4-11.4); MONOCYTES # (AUTO) 0.6 10^3/uL (0.0-1.0); MONOCYTES % (AUTO) 13.6 %; NEUTROPHILS # (AUTO) 3.3 10^3/uL (1.5-6.6); NEUTROPHILS % (AUTO) 70.8 %; PLT - PLATELET COUNT 193 10^3/uL (130-450); RED BLOOD COUNT 4.04 10^6/uL (4.70-6.10); WHITE BLOOD COUNT 4.7 x10^3/uL (4.8-10.8)
[2018-11-28] MEDS ORDERED: IOVERSOL 320 100 ML VIAL IVP ONE (11:38)
[2018-11-28] MEDS: IOVERSOL 320 50 ML VIAL PO ONE (11:42)
[2018-11-28 11:46] LABS: ALBUMIN 3.6 g/dL (3.2-5.5); ALBUMIN/GLOBULIN RATIO 1.2 (1.0-2.2); BILIRUBIN,TOTAL 0.8 mg/dL (0.2-1.0); CALCIUM 8.6 mg/dL (8.5-10.3); CREATININE 0.6 mg/dL (0.6-1.2); TOTAL PROTEIN 6.6 g/dL (6.7-8.2)
[2018-11-28] MEDS: IOVERSOL 320 100 ML VIAL IVP ONE (13:50)
--- NOTE | 2018-11-28 15:47 | CT Report ---
Reason: MALABSORPTION,DIARRHEA,ACUTE Procedure Date: 11/28/2018 Accession Number: [id number] / [id number] Procedure: CT - Abdomen/Pelvis W/ CPT Code: FULL RESULT: EXAM: CT ABDOMEN AND PELVIS EXAM DATE: 11/28/2018 02:02 PM. CLINICAL HISTORY: Malabsorption, diarrhea, acute. COMPARISONS: None. TECHNIQUE: Routine helical CT imaging was performed through the abdomen and pelvis. IV contrast: OPTIRAY 320 100mL. Enteric contrast: Yes. Reconstructions: Coronal and sagittal. In accordance with CT protocol optimization, one or more of the following dose reduction techniques were utilized for this exam: automated exposure control, adjustment of mA and/or KV based on patient size, or use of iterative reconstructive technique. FINDINGS: Lung Bases: Unremarkable. Liver: Normal. No masses. Gallbladder/Bile Ducts: Status post cholecystectomy. Spleen: Normal. 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 Scant calcifications of the pancreas suggest prior/chronic pancreatitis. Adrenal Glands: Normal. Kidneys: Bilateral renal cysts and hypodensities, which are too small to characterize. Peritoneal Cavity/Bowel: No bowel obstruction. Redundant colon, predominantly redundant sigmoid. No free fluid, free air or adenopathy. No masses or acute inflammatory process. The appendix is not definitely visualized. No pericecal fluid or fat stranding to suggest acute inflammatory changes are identified. Pelvic Organs: Normal. The bladder and visualized pelvic organs are within normal limits. Vasculature: Atherosclerosis without carlie aneurysm. Bones: 4 mm of anterolisthesis of L4 on L5. Other: None. IMPRESSION: Redundant colon without acute abnormality detected. RADIA
== END 2018-11-28 11:16 | disposition home or self-care (01) ==
LOC: LAB 11:15 → DI 11:16
PROVIDERS: ATTEND Physician Assistant Medical
DX: K90.9 Intestinal malabsorption, unspecified (principal); R19.7 Diarrhea, unspecified
CPT/HCPCS: 36415; 74177; 80053; 85025; Q9967

== ENCOUNTER 2019-01-11 08:00 | Outpatient (CLI) | payer MEDICARE, OTHER | END 2019-01-11 23:59 | disposition home or self-care (01) | LOC: LAB.F 08:00 | PROVIDERS: ATTEND Urology | DX: N40.1 Benign prostatic hyperplasia with lower urinary tract symptoms (principal); R33.8 Other retention of urine; R19.7 Diarrhea, unspecified | CPT/HCPCS: 82270; 87086 ==

== ENCOUNTER 2019-01-17 08:00 | Outpatient (CLI) | payer MEDICARE, OTHER | END 2019-01-17 23:59 | disposition home or self-care (01) | LOC: LAB.R 08:00 | PROVIDERS: ATTEND Internal Medicine | DX: R19.7 Diarrhea, unspecified (principal) | CPT/HCPCS: 82270 ==

== ENCOUNTER 2019-01-21 11:59 | Outpatient (CLI) | payer MEDICARE, OTHER ==
--- NOTE | 2019-01-23 11:09 | Ultrasound Report ---
Reason: CHRONIC VENOUS HYPERTENSION WITH ULCER OF RIGHT LO Procedure Date: 01/21/2019 Accession Number: [id number] / [id number] Procedure: US - Ankle Brachial Index CPT Code: FULL RESULT: EXAM: BILATERAL ANKLE/BRACHIAL INDEX EXAM DATE: 01/21/2019 12:55 PM. CLINICAL HISTORY: Chronic venous hypertension with ulcer of right lower extremity. COMPARISON: None. TECHNIQUE: A blood pressure cuff and pulse volume recording Doppler ultrasound was used to evaluate the arterial pressures in the arms and ankle. No images were acquired. FINDINGS: Brachial pressure: Right brachial artery: 118/65 mmHg, index 1.00 Left brachial artery: 112/67 mmHg, index 1.00 Right ankle pressures: 126/55 mmHg, index 1.06 Left ankle pressures: 145/63 mmHg, index 1.29 Normal triphasic spectral waveforms are identified in the bilateral posterior tibial and dorsalis pedis arteries with brisk systolic upstrokes. IMPRESSION: 1. Right ankle/brachial index: 1.06. 2. Left ankle/brachial index: 1.29. Recommendation: Recommend interrogation of the venous system for central venous outflow obstruction. ANKLE/BRACHIAL INDEX REFERENCE STANDARDS 1.0-1.4: Normal 0.90-0.99: Borderline < 0.9: Abnormal RAD[facility] The call report notification system was initiated by Dr. Ivan Juan at 10:56 AM on 01/23/2019. The above call report findings were discussed with Johnathon Merino by Dr. Ivan Juan at 11:07 AM on 01/23/2019.
== END 2019-01-21 12:00 | disposition home or self-care (01) ==
LOC: DI 11:59
PROVIDERS: ATTEND Internal Medicine
DX: I87.311 Chronic venous hypertension (idiopathic) with ulcer of right lower extremity (principal)
CPT/HCPCS: 93922

== ENCOUNTER 2019-02-11 15:15 | Outpatient (CLI) | payer MEDICARE, OTHER ==
--- NOTE | 2019-02-12 14:12 | Ultrasound Report ---
Reason: CHRONIC VENOUS HYPERTENSION WITH ULCER OF RIGHT LO Procedure Date: 02/11/2019 Accession Number: [id number] / [id number] Procedure: US - Duplex Ext Veins Bilateral CPT Code: FULL RESULT: EXAM: BILATERAL LOWER EXTREMITY VENOUS ULTRASOUND EXAM DATE: 02/11/2019 04:34 PM. CLINICAL HISTORY: Chronic venous hypertension with ulcer of right lower extremity. COMPARISON: None. TECHNIQUE: Real-time sonographic vascular imaging was performed by the plasterer spray gun through the lower extremities utilizing both color-flow and Doppler spectral analysis. Multiple physician relations representative static images were saved for review. FINDINGS: Right: Common Femoral Vein (CFV): Normal. CFV-GSV Junction: Normal. Profunda Femoral Vein (PFV): Normal. Femoral Vein (FV) Prox: Normal. Femoral Vein (FV) Mid: Normal. Femoral Vein (FV) Dist: Normal. Popliteal Vein: Normal. Posterior Tibial Veins: Normal. Peroneal Veins: Normal. Left: Common Femoral Vein (CFV): Normal. CFV-GSV Junction: Normal. Profunda Femoral Vein (PFV): Normal. Femoral Vein (FV) Prox: Normal. Femoral Vein (FV) Mid: Normal. Femoral Vein (FV) Dist: Normal. Popliteal Vein: Normal. Posterior Tibial Veins: Normal. Peroneal Veins: Normal. Other: In the right popliteal fossa, there is a complex vascular cystic mass measuring 6.3 x 2.2 x 4 cm. In the left popliteal fossa, there is a bilobed hypoechoic cystic collection measuring 7.5 x 3.6 x 6 cm. Possible septations are noted. No mural nodules or vascular components. Small amount of debris is present in the cystic lesion. Lower extremity edema is noted. IMPRESSION: 1. No evidence for deep venous thrombosis bilaterally. 2. Complex vascular cystic mass in the right popliteal fossa measuring 6.3 x 2.2 x 4 cm. Findings may represent a complex popliteal fossa cyst. However, the vascularity raises the possibility of a complex soft tissue mass. Recommend MRI with and without contrast for more definitive characterization given the vascular components. 3. Mildly complex debris-containing, avascular cystic structure in the left popliteal fossa measuring 7.5 x 3.6 x 6 cm. This complex cystic structure probably represents a debris-containing popliteal fossa cyst. 4. Bilateral lower extremity edema noted. RADIA
== END 2019-02-11 15:16 | disposition home or self-care (01) ==
LOC: DI 15:15
PROVIDERS: ATTEND Physician Assistant Medical
DX: I87.311 Chronic venous hypertension (idiopathic) with ulcer of right lower extremity (principal); L98.499 Non-pressure chronic ulcer of skin of other sites with unspecified severity; M71.22 Synovial cyst of popliteal space [Baker], left knee; M71.21 Synovial cyst of popliteal space [Baker], right knee; R60.0 Localized edema
CPT/HCPCS: 93970

== ENCOUNTER 2019-03-13 09:15 | Outpatient (CLI) | payer MEDICARE, OTHER ==
--- NOTE | 2019-03-13 15:56 | MRI Report ---
Reason: POPLITEAL CYST,RIGHT Procedure Date: 03/13/2019 Accession Number: [id number] / [id number] Procedure: MRI - Knee LT W/O CPT Code: FULL RESULT: EXAM: LEFT KNEE MRI WITHOUT CONTRAST. EXAM DATE: 03/13/2019 09:31 AM. CLINICAL HISTORY: Popliteal cyst, right. COMPARISON: None. TECHNIQUE: Multiplanar, multisequence T1-weighted and fluid-sensitive sequences of the knee without contrast. Other: None. FINDINGS: Bones: Marrow edema on both sides of the medial compartment. Tricompartmental marginal arthrosis also seen. 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 Medial Meniscus: Medial meniscus is truncated and partially subluxed out of the joint, this is probably multifocal macerated tear. Lateral Meniscus: The lateral meniscus is intact. Cruciate Ligaments: ACL is attenuated but thought to be intact. PCL is normal. Collateral Ligaments: The medial collateral and lateral collateral ligamentous structures are intact. Tendons: The quadriceps, patellar, semimembranosus, and popliteus tendons are unremarkable. Musculature: No edema or fatty atrophy. Other: Moderate-sized joint effusion. Multifocal moderate to large-sized popliteal cyst. Some debris also seen in the popliteal cyst. The medial and lateral retinacula are intact. Subcutaneous edema and swelling around the knee. IMPRESSION: 1. Some edema on both sides of the medial compartment, tricompartment marginal arthrosis also noted. 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 There may be multiple macerated tears present. 2. ACL is attenuated but intact, normal PCL. Lateral meniscus, collaterals appear unremarkable. 3. Moderate-sized joint effusion, moderate to large popliteal cyst with some debris in it. Subcutaneous edema and swelling is seen around the knee. RADIA
--- NOTE | 2019-03-13 15:56 | MRI Report ---
Reason: POPLITEAL CYST,RIGHT Procedure Date: 03/13/2019 Accession Number: [id number] / [id number] Procedure: MRI - Knee RT W/O CPT Code: FULL RESULT: EXAM: RIGHT KNEE MRI WITHOUT CONTRAST EXAM DATE: 03/13/2019 10:53 AM. CLINICAL HISTORY: Popliteal cyst, right. COMPARISON: None. TECHNIQUE: Multiplanar, multisequence T1-weighted and fluid-sensitive sequences of the knee without contrast. Other: Motion artifact. FINDINGS: Bones: Abnormal marrow edema on both sides the medial compartment. Tricompartmental marginal osteophytosis also is present. Articular Cartilage: Broad areas of grade 4 chondromalacia on both sides of the medial compartment, some areas of broad grade 3 chondromalacia lateral compartment. Patellofemoral joint is unremarkable. Medial Meniscus: Truncated somewhat macerated appearing posterior horn medial meniscus is present. Remainder of the meniscus is difficult to evaluate and visualize because of motion. Lateral Meniscus: The lateral meniscus is intact. Cruciate Ligaments: The anterior and posterior cruciate ligaments are intact. Collateral Ligaments: The medial collateral and lateral collateral ligamentous structures are intact. Tendons: The quadriceps, patellar, semimembranosus, and popliteus tendons are unremarkable. Musculature: No edema or fatty atrophy. Other: Small to moderate-sized joint effusion. Popliteal cyst with some internal debris and loose bodies. Series 501 image 6. The medial and lateral retinacula are intact. Surrounding subcutaneous edema and swelling is present. IMPRESSION: 1. Abnormal marrow edema on both sides of medial compartment, tricompartmental marginal arthrosis. Broad areas of grade 4 chondromalacia on both sides ofthe medial compartment. 2. Truncated macerated appearing posterior horn medial meniscus injury. Remainder of the meniscus is difficult to evaluate because of motion. Lateral meniscus, cruciates and collaterals appear unremarkable. 3. Small to moderate joint effusion. Popliteal cyst with internal debris and loose bodies. Surrounding subcutaneous edema and swelling. RADIA
== END 2019-03-13 09:16 | disposition home or self-care (01) ==
LOC: DI 09:15
PROVIDERS: ATTEND Family Medicine
DX: M71.21 Synovial cyst of popliteal space [Baker], right knee (principal); M71.22 Synovial cyst of popliteal space [Baker], left knee; M94.262 Chondromalacia, left knee; M94.261 Chondromalacia, right knee; S83.241A Other tear of medial meniscus, current injury, right knee, initial encounter; M25.462 Effusion, left knee; M25.461 Effusion, right knee

== ENCOUNTER 2020-06-19 14:39 | Outpatient (CLI) | payer MEDICARE, OTHER | END 2020-06-19 14:40 | disposition EMS.NT | LOC: EMS 14:39 | PROVIDERS: ATTEND Surgery | DX: R53.1 Weakness (principal); Z53.29 Procedure and treatment not carried out because of patient's decision for other reasons ==

== ENCOUNTER 2020-11-08 09:53 | Outpatient (CLI) | payer MEDICARE, OTHER | END 2020-11-08 09:54 | disposition critical access hospital (66) | LOC: EMS 09:53 | PROVIDERS: ATTEND Surgery | DX: R07.81 Pleurodynia (principal); M25.511 Pain in right shoulder | CPT/HCPCS: A0425; A0429 ==

== ENCOUNTER 2020-11-08 10:26 | Emergency (ER) | payer MEDICARE, OTHER ==
--- NOTE | 2020-11-08 10:38 | ED Physician Documentation ---
PD HPI Fall - Stated complaint Stated Complaint: GLF - Chief complaint Chief Complaint: Trauma Ch/Bk - History obtained from History obtained from: Patient, EMS - History of Present Illness Mechanism of injury: Tripped, Lost balance Fall distance: Standing position (he states was getting up to go to bathroom and stumbled, fell against TV stand striking right lower ribs laterally. Denies injury to head. Pain at right lower chest/upper abd.) Where injury occurred: Home Timing - onset: How many hours ago (1), Today Injury(ies) location: Chest (right lower), Abdomen (right upper). No: Head, Neck Associated symptoms: No: LOC, AMS, Neck pain, Weakness, Paresthesias Worsens with: Movement, Palpation Contributing factors: No: Anticoagulated Similar symptoms before: Has not had sx before Recently seen: Not recently seen Review of Systems Constitutional: denies: Fever, Chills Nose: denies: Rhinorrhea / runny nose, Congestion Throat: denies: Sore throat Cardiac: reports: Chest pain / pressure (just with the fall). 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 HEENT: Tonsil/Adenoidectomy - Present Medications Home Medications: Ambulatory Orders Medication Instructions Recorded Confirmed Multivit-Min/Calc/Biotin/D3/FA 1 each PO DAILY 03/12/14 01/24/19 [Biotin Plus-Calcium & Vit D3] Celecoxib [CeleBREX] 100 mg PO BIDWM 05/21/17 01/24/19 Finasteride [Proscar] 5 mg PO DAILY 07/11/18 01/24/19 Tamsulosin [Flomax] 0.4 mg PO QPM 07/11/18 01/24/19 Cholecalciferol (Vitamin D3) 1 tab PO DAILY 01/24/19 01/24/19 [Vitamin D3] Cyanocobalamin (Vitamin B-12) 1 cap PO DAILY 01/24/19 01/24/19 [Vitamin B-12] Diphenoxylate/Atropine [Lomotil] 1 - 2 tab PO Q8HR PRN 01/24/19 01/24/19 Folic Acid 1 tab PO DAILY 01/24/19 01/24/19 Lutein/Zeaxanthin 1 cap PO DAILY 01/24/19 01/24/19 [Lutein-Zeaxanthin 20-1 mg Sfgl] [place]-3S/Dha/Epa/Fish Oil [Fish 1 cap PO DAILY 01/24/19 01/24/19 Oil 1,200 mg Softgel] Vit A/Vit C/Vit E/Zinc/Copper 1 cap PO DAILY 01/24/19 01/24/19 [Preservision Areds Softgel] HYDROcod/ACETAM 5/325 [Kevin 5/325] 1 ea PO Q6H PRN #12 tablet 11/08/20 - Allergies Allergies/Adverse Reactions: Allergies Allergy/AdvReac Type Severity Reaction Status Date / Time No Known Drug Allergies Allergy Verified 11/08/20 10:32 - Social History Does the pt smoke?: No Smoking Status: Former smoker Does the pt drink ETOH?: No Does the pt have substance abuse?: No - Immunizations Immunizations are current?: Yes - POLST Patient has POLST: No POLST Status: Full Code PD ED PE NORMAL - Vitals Vital signs reviewed: Yes - General General: Alert and oriented X 3, Well developed/nourished, Other (appears moderately uncomfortable with deep breathing, with pain right lower chest/upper abd. ) - HEENT HEENT: Atraumatic - Neck Neck: Supple, no meningeal sign, No bony TTP, No adenopathy - Cardiac Cardiac: RRR, No murmur - Respiratory Respiratory: Clear bilaterally, Other (tender without deformity right anterolateral right lower chest to upper right abd. No noted bruising. Has local abrasion without bleeding. ) - Abdomen Abdomen: Normal bowel sounds, Soft, Non distended, No organomegaly - Back Back: No CVA TTP, No spinal TTP - Derm Derm: Normal color, Warm and dry - Extremities Extremities: No tenderness to palpate, Normal ROM s pain, No edema, No calf tenderness / cord - Neuro Neuro: Alert and oriented X 3, No motor deficit, Normal speech Results - Vitals Vitals: Vital Signs - 24 hr 11/08/20 11/08/20 11/08/20 10:27 12:45 14:00 Temperature 36.1 C L 36.3 C L Heart Rate 60 68 55 L Respiratory 16 18 26 H Rate Blood Pressure 139/76 H 123/63 125/63 O2 Saturation 98 99 99 Oxygen O2 Source [Without Activity] Room air O2 Source Room air - Labs Labs: Laboratory Tests 11/08/20 11/08/20 11:27 11:27 WBC 7.2 RBC 4.26 L Hgb 13.2 L Hct 40.1 L MCV 94.1 H MCH 31.0 MCHC 32.9 RDW 13.2 Plt Count 216 MPV 9.9 Neut # (Auto) 5.8 Lymph # (Auto) 0.6 L Dixon # (Auto) 0.6 Eos # (Auto) 0.0 Baso # (Auto) 0.0 Absolute Nucleated RBC 0.00 Nucleated RBC % 0.0 Sodium 137 Potassium 4.2 Chloride 102 Carbon Dioxide 27 Anion Gap 8.0 BUN 25 H Creatinine 0.8 Estimated GFR (MDRD) 92 Glucose 159 H Calcium 8.7 Magnesium 2.3 - Rads (name of study) chest xray Radiology: Prelim report reviewed (no PTX nor obvious fractures), See rad report chest/abd CT Radiology: Prelim report reviewed (no rib fractures nor visible organ injuries. No free fluid. ), See rad report PD MEDICAL DECISION MAKING - ED course Complexity details: reviewed results (no fractures nor organ injury. ), re- evaluated patient (feeling better with meds given here. ), considered differential (CXR first to ensure no gross abnormality. Then CTs obtained for better detail. ), d/w patient Departure - Departure Disposition: 01 Home, Self Care Clinical Impression: Fall from slip, trip, or stumble Qualifiers: Encounter type: initial encounter Qualified Code(s): W01.0XXA - Fall on same level from slipping, tripping and stumbling without subsequent striking against object, initial encounter Chest wall contusion Qualifiers: Encounter type: initial encounter Laterality: right Qualified Code(s): S20.211A - Contusion of right front wall of thorax, initial encounter Condition: Stable Record reviewed to determine appropriate education?: Yes Instructions: ED Contusion Chest Wall Prescriptions: HYDROcod/ACETAM 5/325 [Kevin 5/325] 1 ea PO Q6H PRN #12 tablet PRN Reason: Pain Comments: The scan does not show any signs of rib fractures nor any organ injury. You will still be sore in the chest wall from the abrasions and bruising. I would anticipate this mainly over the next few days and then improving. Continue usual medicines including the Celebrex. Add Tylenol 650 mg 4 times a day. To that add hydrocodone if needed for worse pain. Again I would anticipate the worst pain over the next several days and tapering after that. Activity as tolerated. Recheck if not improving in a good timeframe Discharge Date/Time: 11/08/20 14:21
--- NOTE | 2020-11-08 10:57 | XRAY Report ---
PROCEDURE: Chest 1 View X-Ray INDICATIONS: chest pain TECHNIQUE: One view of the chest was acquired. COMPARISON: Chest x-ray 08/17/2018 FINDINGS: Poor inspiratory effort is noted. Surgical changes and devices: None. Lungs and pleura: No pleural effusions or pneumothorax. Mild appearance of increased vascularity. Me diastinum: Mediastinal contours appear normal. Heart size is mildly prominent. Bones and chest wall : No suspicious bony lesions. Overlying soft tissues appear unremarkable. IMPRESSION: There is mild appearance of increased vascularity which could be secondary to edema or crowding of pu lmonary vasculature due to poor inspiratory effort. Reviewed by: Taylor Urias MD on 11/08/2020 10:56 AM [facility] Approved by: Taylor Urias MD on 11/08/2020 10:56 AM [facility] Station ID: [id number]
[2020-11-08] MEDS ORDERED: ONDANSETRON 4 MG/2 ML VIAL IVP STA (11:09)
[2020-11-08] MEDS ORDERED: HYDROmorphone 1 MG/ML CARPUJECT IVP STA ×2 (11:09→14:01)
[2020-11-08] MEDS ORDERED: IOVERSOL 320 100 ML VIAL IVP ONE ×2 (11:33→15:57)
[2020-11-08 11:52] LABS: BASOPHILS % (AUTO) 0.3 %; EOSINOPHILS % (AUTO) 0.4 %; HGB - HEMOGLOBIN 13.2 g/dL (14.0-18.0); LYMPHOCYTES # (AUTO) 0.6 10^3/uL (1.5-3.5); LYMPHOCYTES % (AUTO) 8.4 %; MEAN CORPUSCULAR HGB CONC 32.9 g/dL (32.0-36.0); MEAN CORPUSCULAR VOLUME 94.1 fL (80.0-94.0); MEAN PLATELET VOLUME 9.9 fL (7.4-11.4); MONOCYTES # (AUTO) 0.6 10^3/uL (0.0-1.0); MONOCYTES % (AUTO) 8.9 %; NEUTROPHILS # (AUTO) 5.8 10^3/uL (1.5-6.6); NEUTROPHILS % (AUTO) 81.2 %; PLT - PLATELET COUNT 216 10^3/uL (130-450); RED BLOOD COUNT 4.26 10^6/uL (4.70-6.10); RED CELL DISTRIBUTION WIDTH 13.2 % (12.0-15.0); WHITE BLOOD COUNT 7.2 x10^3/uL (4.8-10.8)
[2020-11-08 12:02] LABS: CALCIUM 8.7 mg/dL (8.5-10.3); CREATININE 0.8 mg/dL (0.6-1.2); MAGNESIUM 2.3 mg/dL (1.7-2.8)
--- NOTE | 2020-11-08 13:28 | CT Report ---
PROCEDURE: Abdomen/Pelvis W INDICATIONS: fall with right chest/abd pain CONTRAST: IV CONTRAST: Optiray 320 ml: 100 PO CONTRAST: *NO PO CONTRAST TECHNIQUE: After the administration of 100 mL contrast, 5 mm thick sections acquired from the diaphragms to the symphysis. 5 mm thick coronal and sagittal reformats were acquired. For radiation dose reduction, t he following was used: automated exposure control, adjustment of mA and/or kV according to patient s ize. COMPARISON: None. FINDINGS: Image quality: Excellent. ABDOMEN: Lung bases: Bibasilar atelectasis, otherwise the lung bases are clear. Heart size is normal. Solid organs: Liver and spleen are normal in size and enhancement. Status post cholecystectomy. Bili good system is non dilated. No adrenal nodules. Kidneys demonstrate normal size and enhancement, with out hydronephrosis. Both kidneys demonstrate simple renal cysts. A previously described pancreatic c ystic lesion is not identified. The pancreas has a normal appearance. Peritoneum and bowel: Bowel loops demonstrate normal wall thickness and caliber. No free fluid or a ir. Nodes and vessels: No retroperitoneal or mesenteric adenopathy by size criteria. Aorta and inferior vena cava are normal in size. The aorta has atherosclerotic calcifications. Miscellaneous: No ventral hernias. PELVIS: Genitourinary: Bladder wall thickness is normal. Miscellaneous: There is a fat-containing right inguinal hernia. Bones: There are multilevel degenerative changes. 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 There is grade 1 a nterolisthesis of L4 over L5, likely due to facet arthrosis. No suspicious bony lesions. No vertebra l body compression fractures. IMPRESSION: 1. No acute abnormality of the abdomen or pelvis. 2. Other incidental findings as above. Reviewed by: Wilder Sow on 11/08/2020 1:27 PM [facility] Approved by: Wilder Sow on 11/08/2020 1:27 PM PST Station ID: [id number]
--- NOTE | 2020-11-08 13:42 | CT Report ---
PROCEDURE: CHEST W INDICATIONS: fall, with left upper abd/lower chest pain CONTRAST: IV CONTRAST: Optiray 320 ml: 100 PO CONTRAST: *NO PO CONTRAST TECHNIQUE: After the administration of intravenous contrast, 5 mm thick sections acquired from the pulmonary api kourtney to the posterior costophrenic angles. 7 mm thick coronal MIP reformats were acquired. For radia tion dose reduction, the following was used: automated exposure control, adjustment of mA and/or kV according to patient size. COMPARISON: Chest radiograph from the same day. FINDINGS: Image quality: Excellent. Lungs and pleura: Dependent atelectasis and scarring in the posterior aspect of bilateral lung bases are seen. No acute airspace opacity. No pleural effusions or pneumothorax. Central and peripheral ai rways are patent and normal in caliber. Mediastinum: Heart size is enlarged. No pericardial effusion. No mediastinal hematoma. No mediasti nal or hilar adenopathy by size criteria. Moderate atherosclerotic disease is seen. Thoracic aorta a nd central pulmonary arteries are normal in size. Esophagus is normal in caliber. There is a small h iatal hernia. Bones and chest wall: No suspicious bony lesions. No vertebral body compression fractures. Degener ative endplate changes throughout thoracic spine are seen. No axillary or supraclavicular adenopathy by size criteria. Thyroid gland is within normal limits. Abdomen: Please refer to CT of abdomen and pelvis finding from the same day. Patient is status post c holecystectomy. IMPRESSION: 1. Bilateral dependent scarring/atelectasis. No pleural effusion or pneumothorax. No evidence of pulm onary contusion. 2. No mediastinal hematoma. Cardiomegaly, no pericardial effusion. No mediastinal or hilar lymphadeno ban. 3. No gross acute fracture or dislocation is seen in the chest. Reviewed by: Evaristo Ferrara MD on 11/08/2020 12:41 PM [facility] Approved by: Evaristo Ferrara MD on 11/08/2020 12:41 PM [facility] Station ID: [id number]
[2020-11-08] MEDS ORDERED: KETOROLAC 30 MG/ML VIAL IVP STA (14:01)
[2020-11-08] MEDS ORDERED: ACETAMINOPHEN 325 MG TABLET PO STA (14:01)
[2020-11-08 14:03] VITALS: BP 125/63
== END 2020-11-08 14:21 | disposition home or self-care (01) ==
LOC: EDUNIT# → ED 10:26
DX: S20.211A Contusion of right front wall of thorax, initial encounter (principal); W01.190A Fall on same level from slipping, tripping and stumbling with subsequent striking against furniture, initial encounter; Y93.01 Activity, walking, marching and hiking; Y92.009 Unspecified place in unspecified non-institutional (private) residence as the place of occurrence of the external cause; Z87.891 Personal history of nicotine dependence
CPT/HCPCS: 36415; 71045; 71260; 74177; 80048; 83735; 85025; 96374; 96375; 96376; 99284; A9270; J1170; Q9967

== ENCOUNTER 2020-11-25 13:54 | Outpatient (CLI) | payer MEDICARE, OTHER ==
--- NOTE | 2020-11-25 14:32 | CT Report ---
PROCEDURE: HEAD WO INDICATIONS: (IDIOPATHIC) NORMAL PRESSURE HYDROCEPHALUS TECHNIQUE: Noncontrast 4.5 mm thick angled axial sections acquired from the foramen magnum to the vertex. For r adiation dose reduction, the following was used: automated exposure control, adjustment of mA and/or kV according to patient size. COMPARISON: None. FINDINGS: Image quality: Excellent. CSF spaces: Basal cisterns are patent. Right frontal approach ventriculostomy with the tip seen in t he right lateral ventricle. No extra-axial fluid collections. Ventricles are mildly prominent howeve r technically age indeterminate Brain: No midline shift. Diffuse, scattered nonspecific white matter signal changes, statistically represent chronic microvascular ischemic disease although differential includes neurodegenerative, in fectious/inflammatory, demyelinating etiologies among other possibilities. No intracranial masses or hemorrhage. [place]-white matter interface is normal. Skull and face: Calvarium and visualized facial bones are intact, without suspicious lesions. Sinuses: Visualized sinuses and mastoids are clear. IMPRESSION: Right frontal approach ventriculostomy catheter with the tip seen in the right lateral ventricle. Dif fuse prominence of the ventricles however technically age indeterminate. Any relevant comparison stud ies would be helpful if obtainable. Reviewed by: Chalo Maradiaga MD on 11/25/2020 2:30 PM PST Approved by: Chalo Maradiaga MD on 11/25/2020 2:30 PM PST Station ID: [id number]
== END 2020-11-25 13:55 | disposition home or self-care (01) ==
LOC: DI 13:54
PROVIDERS: ATTEND Nurse Practitioner Family
DX: G91.2 (Idiopathic) normal pressure hydrocephalus (principal); Z97.8 Presence of other specified devices
CPT/HCPCS: 70450

== ENCOUNTER 2021-01-15 12:36 | Outpatient (CLI) | payer MEDICARE, OTHER ==
--- NOTE | 2021-01-15 13:23 | CT Report ---
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 For r adiation dose reduction, the following was used: automated exposure control, adjustment of mA and/or kV according to patient size. COMPARISON: 11/25/2020. FINDINGS: Image quality: Excellent. CSF spaces: Basal cisterns are patent. No extra-axial fluid collections. Ventricles are normal in size and shape. Brain: No midline shift. There is a ventriculostomy catheter crossing the right frontal brain paren chyma, terminating against the interhemispheric falx within the frontal horn of the right lateral wilmer tricle. No intracranial masses or hemorrhage. [place]-white matter interface is normal. Skull and face: Calvarium and visualized facial bones are intact, without suspicious lesions. Sinuses: Visualized sinuses and mastoids are clear. IMPRESSION: Ventriculostomy as discussed, without hydrocephalus. No mass lesion found. Reviewed by: Stas Zhong MD on 01/15/2021 1:21 PM PST Approved by: Stas Zhong MD on 01/15/2021 1:21 PM PST Station ID: [id number]
== END 2021-01-15 12:37 | disposition home or self-care (01) ==
LOC: DI 12:36
PROVIDERS: ATTEND Neurological Surgery
DX: G91.2 (Idiopathic) normal pressure hydrocephalus (principal); Z98.2 Presence of cerebrospinal fluid drainage device

== ENCOUNTER 2021-04-03 01:40 | Outpatient (CLI) | payer MEDICARE, OTHER | END 2021-04-03 01:41 | disposition critical access hospital (66) | LOC: EMS 01:40 | DX: S00.01XA Abrasion of scalp, initial encounter (principal); M79.621 Pain in right upper arm; W18.30XA Fall on same level, unspecified, initial encounter; Y93.89 Activity, other specified; Y92.009 Unspecified place in unspecified non-institutional (private) residence as the place of occurrence of the external cause | CPT/HCPCS: A0425; A0429 ==

== ENCOUNTER 2021-04-03 02:09 | Emergency (ER) | payer MEDICARE, OTHER ==
--- NOTE | 2021-04-03 03:11 | ED Physician Documentation ---
PD HPI UPPER EXT INJURY - Stated complaint Stated Complaint: GLF, RT SHOULDER PAIN, HEAD ABRASION - Chief complaint Chief Complaint: Trauma Hd/Nk - History obtained from History obtained from: Patient - History of Present Illness Location: Right Type of injury: Fall Where injury occurred: Home Timing - onset: How many hours ago (1) Timing - details: Abrupt onset Pain level now: 2 Improved by: Rest Worsened by: Moving Associated symptoms: No: Weakness, Numbness, Tingling, Swelling Contributing factors: No: Anticoagulated Recently seen: Not recently seen - Additonal information Additional information: 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 denies: Neck pain, Back pain Neurologic: reports: Head injury. 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 HEENT: Tonsil/Adenoidectomy - Present Medications Home Medications: Ambulatory Orders Medication Instructions Recorded Confirmed Multivit-Min/Calc/Biotin/D3/FA 1 each PO DAILY 03/12/14 04/03/21 [Biotin Plus-Calcium & Vit D3] Celecoxib [CeleBREX] 100 mg PO BIDWM 05/21/17 04/03/21 Finasteride [Proscar] 5 mg PO DAILY 07/11/18 04/03/21 Tamsulosin [Flomax] 0.4 mg PO QPM 07/11/18 04/03/21 Cholecalciferol (Vitamin D3) 1 tab PO DAILY 01/24/19 04/03/21 [Vitamin D3] Folic Acid 1 tab PO DAILY 01/24/19 04/03/21 Lutein/Zeaxanthin 1 cap PO DAILY 01/24/19 04/03/21 [Lutein-Zeaxanthin 20-1 mg Sfgl] [place]-3S/Dha/Epa/Fish Oil [Fish 1 cap PO DAILY 01/24/19 04/03/21 Oil 1,200 mg Softgel] Vit A/Vit C/Vit E/Zinc/Copper 1 cap PO DAILY 01/24/19 04/03/21 [Preservision Areds Softgel] traMADol [Ultram] 50 mg PO Q6H PRN #10 tablet 04/03/21 - Allergies Allergies/Adverse Reactions: Allergies Allergy/AdvReac Type Severity Reaction Status Date / Time No Known Drug Allergies Allergy Verified 04/03/21 02:20 - Social History Does the pt smoke?: No Smoking Status: Never smoker Does the pt drink ETOH?: No Does the pt have substance abuse?: No - Immunizations Immunizations are current?: Yes - POLST Patient has POLST: No POLST Status: Full Code PD ED PE NORMAL - Vitals Vital signs reviewed: Yes - General General: Alert and oriented X 3, No acute distress, Well developed/nourished - HEENT HEENT: PERRL, EOMI, Other (echymosis right frontoparietal scalp with mild TTP; RESIDENTIAL PROGRAM COORDINATOR shunt valve is visible and palpable and is within the echymotic area) - Neck Neck: No bony TTP - Cardiac Cardiac: RRR, No murmur - Respiratory Respiratory: No respiratory distress, Clear bilaterally - Neuro Neuro: Alert and oriented X 3 Eye Opening: Spontaneous Motor: Obeys Commands Verbal: Oriented GCS Score: 15 PD ED PE EXPANDED - Extremities Extremities: Tenderness, Limited ROM, Right shoulder Results - Vitals Vitals: Oxygen O2 Source [Without Activity] Room air O2 Source Room air - Rads (name of study) CT head Radiology: Prelim report reviewed, See rad report right shoulder xrays Radiology: Prelim report reviewed, See rad report PD MEDICAL DECISION MAKING - ED course Complexity details: reviewed results, re-evaluated patient, considered differential, d/w patient Departure - Departure Disposition: 01 Home, Self Care Clinical Impression: Fall Qualifiers: Encounter type: initial encounter Qualified Code(s): W19.XXXA - Unspecified fall, initial encounter Condition: Good Instructions: ED Contusion Scalp, ED Sprain Shoulder Follow-Up: Merlin Serrano MD [Primary Care Provider] - Prescriptions: traMADol [Ultram] 50 mg PO Q6H PRN #10 tablet PRN Reason: Pain Comments: Use acetaminophen for pain (Tylenol; follow label instructions). If the acetaminophen does not adequately control your pain, you can add the tramadol (this is the prescription provided tonight). Tramadol can cause some unsteadiness and drowsiness, so use it sparingly. Discharge Date/Time: 04/03/21 05:23
[2021-04-03] MEDS ORDERED: ACETAMINOPHEN 325 MG TABLET PO STA (05:07)
[2021-04-03 05:08] VITALS: BP 141/76
--- NOTE | 2021-04-03 08:24 | XRAY Report ---
PROCEDURE: Shoulder 3 View RT INDICATIONS: fall, right shoulder pain TECHNIQUE: 3 views of the shoulder were acquired. COMPARISON: None. FINDINGS: Bones: No fractures or dislocations. No suspicious bony lesions. Visualized ribs appear intact. Soft tissues: No suspicious soft tissue calcifications. What appears to be a ventriculostomy cathet er crosses the right neck and chest. IMPRESSION: Mild osteoarthritis at the AC joint, no acute trauma found to the osseous structures of the right shoulder and adjacent. Reviewed by: Stas Zhong MD on 04/03/2021 8:23 AM PDT Approved by: Stas Zhong MD on 04/03/2021 8:23 AM PDT Station ID: [id number]
--- NOTE | 2021-04-03 09:07 | CT Report ---
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 For r adiation dose reduction, the following was used: automated exposure control, adjustment of mA and/or kV according to patient size. COMPARISON: 01/15/2021 FINDINGS: Image quality: Excellent. CSF spaces: Basal cisterns are patent. No extra-axial fluid collections. The ventricles are promin ent, but stable compared to the prior exam. Brain: Interventricular catheter projects to the right lateral ventricle via a right frontal approac h. No intracranial bleeds or masses. There is cerebral volume loss for age, with resultant ventricul ar and sulcal prominence. There are periventricular and deep white matter chronic small vessel ische marija changes. There is intracranial internal carotid artery atherosclerosis. Skull and face: Calvarium and visualized facial bones appear intact, without suspicious lesions. Sinuses: Visualized sinuses and mastoids are clear. IMPRESSION: No acute intracranial disease process. Reviewed by: Eleanor Eason MD, PhD on 04/03/2021 9:06 AM PDT Approved by: Eleanor Eason MD, PhD on 04/03/2021 9:06 AM PDT Station ID: [id number]
== END 2021-04-03 05:23 | disposition home or self-care (01) ==
LOC: EDUNIT# → ED 02:09
DX: S00.03XA Contusion of scalp, initial encounter (principal); M25.511 Pain in right shoulder; W18.30XA Fall on same level, unspecified, initial encounter; Y92.009 Unspecified place in unspecified non-institutional (private) residence as the place of occurrence of the external cause; Z96.89 Presence of other specified functional implants; Z79.899 Other long term (current) drug therapy
CPT/HCPCS: 70450; 73030; 99284; A9270

== ENCOUNTER 2021-09-03 08:00 | Outpatient (CLI) | payer MEDICARE, OTHER | END 2021-09-03 23:59 | disposition home or self-care (01) | LOC: LAB.R 08:00 | PROVIDERS: ATTEND Family Medicine | DX: L89.891 Pressure ulcer of other site, stage 1 (principal) | CPT/HCPCS: 87070; 87077; 87181; 87205 ==

== ENCOUNTER 2021-09-05 03:53 | Outpatient (CLI) | payer MEDICARE, OTHER | END 2021-09-05 03:54 | disposition EMS.NT | LOC: EMS 03:53 | DX: Z03.89 Encounter for observation for other suspected diseases and conditions ruled out (principal) ==

== ENCOUNTER 2021-10-18 12:42 | Emergency (ER) | payer MEDICARE, OTHER ==
--- NOTE | 2021-10-18 13:00 | ED Physician Documentation ---
PD HPI NVD - Stated complaint Stated Complaint: WEAKNESS - Chief complaint Chief Complaint: General - History obtained from History obtained from: Patient - History of Present Illness Timing - onset: How many days ago (4-5) Timing - duration: Days (4-5) Timing - details: Gradual onset, Still present Associated symptoms: Abdominal pain (intermittent lower mid to right abd cramping. No consistent pain.), Loss of appetite (lessened but still trying to eat regular.), Other (has noted some soft dark brown stools last night and t kenia. Not watery. No melena.). No: Fever, Near syncope / syncope Contributing factors: Other (he states he started new SSRI (Prozac) 2-3 days ago; was starting to feel ill prior to that.). No: Sick contact, Bad food, Recent antibiotics Worsened by: Other (feels lightheaded with standing and walking.) Similar symptoms before: Has not had sx before Recently seen: Not recently seen Review of Systems Constitutional: reports: Fatigue. denies: Fever, Chills Nose: denies: Rhinorrhea / runny nose, Congestion Throat: denies: Sore throat Cardiac: denies: Chest pain / pressure, Palpitations Respiratory: denies: Dyspnea, Cough GI: reports: Abdominal Pain. denies: Abdominal Swelling, Vomiting, Constipation, Diarrhea (soft stools twice last night and today, but not diarrhea per se.) : denies: Dysuria, Frequency, Hematuria (noted urine seeming darker than usual) Skin: denies: Rash Musculoskeletal: denies: Back pain, Extremity swelling Neurologic: reports: Generalized weakness. denies: Focal weakness, Near syncope, Altered mental status, Headache, Head injury PD PAST MEDICAL HISTORY - Past Medical History Cardiovascular: None Respiratory: None Neuro: Other Endocrine/Autoimmune: None GI: Other : Benign prostate hypertrophy HEENT: Macular degeneration Psych: Depression Musculoskeletal: Osteoarthritis, Osteoporosis Derm: None - Past Surgical History Past Surgical History: Yes Neuro: FURNACE REPAIRER shunt HEENT: Tonsil/Adenoidectomy - Present Medications Home Medications: Ambulatory Orders Medication Instructions Recorded Confirmed Celecoxib [CeleBREX] 100 mg PO BIDWM 05/21/17 10/18/21 Finasteride [Proscar] 5 mg PO DAILY 07/11/18 10/18/21 Tamsulosin [Flomax] 0.4 mg PO QPM 07/11/18 10/18/21 Cholecalciferol (Vitamin D3) 1 tab PO DAILY 01/24/19 10/18/21 [Vitamin D3] Lutein/Zeaxanthin 1 cap PO DAILY 01/24/19 10/18/21 [Lutein-Zeaxanthin 20-1 mg Sfgl] [place]-3S/Dha/Epa/Fish Oil [Fish 1 cap PO DAILY 01/24/19 10/18/21 Oil 1,200 mg Softgel] Vit A/Vit C/Vit E/Zinc/Copper 1 cap PO DAILY 01/24/19 10/18/21 [Preservision Areds Softgel] Bisacodyl Supp [Dulcolax Supp] 10 mg [place] DAILY PRN #5 supp 10/18/21 Lactulose 10 gm PO BID PRN #240 ml 10/18/21 - Allergies Allergies/Adverse Reactions: Allergies Allergy/AdvReac Type Severity Reaction Status Date / Time No Known Drug Allergies Allergy Verified 10/18/21 12:46 - Social History Does the pt smoke?: No Smoking Status: Never smoker Does the pt drink ETOH?: No Does the pt have substance abuse?: No - Immunizations Immunizations are current?: Yes - POLST Patient has POLST: No POLST Status: Full Code PD ED PE NORMAL - Vitals Vital signs reviewed: Yes (triage vitals shows mild hypotension) - General General: Alert and oriented X 3, No acute distress, Well developed/nourished - HEENT HEENT: Ears normal, Moist mucous membranes, Pharynx benign - Neck Neck: Supple, no meningeal sign, No adenopathy - Cardiac Cardiac: RRR, No murmur - Respiratory Respiratory: Clear bilaterally - Abdomen Abdomen: Normal bowel sounds, Soft, Non distended, No organomegaly, Other (Minimally tender right lower quadrant and suprapubic area without any percussion or rebound tenderness. No guarding.) - Male Male : Deferred - Rectal Rectal: Deferred - Back Back: No CVA TTP, Other (kyphosis. Slow movements generally. No focal weakness. ) - Derm Derm: Normal color, Warm and dry - Extremities Extremities: No tenderness to palpate, Normal ROM s pain, No edema, No calf tenderness / cord - Neuro Neuro: Alert and oriented X 3, No motor deficit, Normal speech Results - Vitals Vitals: Vital Signs - 24 hr 10/18/21 10/18/21 12:46 14:00 Temperature 36.5 C Heart Rate 84 71 Respiratory 18 14 Rate Blood Pressure 97/49 L 125/71 O2 Saturation 100 96 Oxygen O2 Source [Without Activity] Room air O2 Source Room air - Labs Labs: Laboratory Tests 10/18/21 10/18/21 10/18/21 13:24 13:24 13:24 WBC 6.0 RBC 4.13 L Hgb 12.5 L Hct 37.9 L MCV 91.8 MCH 30.3 MCHC 33.0 RDW 13.2 Plt Count 209 MPV 9.2 Neut # (Auto) 4.6 Lymph # (Auto) 0.7 L [place] # (Auto) 0.6 Eos # (Auto) 0.0 Baso # (Auto) 0.0 Absolute Nucleated RBC 0.00 Nucleated RBC % 0.0 Sodium 132 L Potassium 4.2 Chloride 100 L Carbon Dioxide 23 Anion Gap 9.0 BUN 22 H Creatinine 0.7 Estimated GFR (MDRD) 107 Glucose 117 H Calcium 8.8 Magnesium 2.2 Total Bilirubin 0.9 AST 17 ALT 12 Alkaline Phosphatase 65 Troponin I High Sens 5.4 Total Protein 6.8 Albumin 4.2 Globulin 2.6 Albumin/Globulin Ratio 1.6 Lipase 60 H Urine Color Urine Clarity Urine pH Ur Specific [place] Urine Protein Urine Glucose (UA) Urine Ketones Urine Occult Blood Urine Nitrite Urine Bilirubin Urine Urobilinogen Ur Leukocyte Esterase Ur Microscopic Review Urine Culture Comments 10/18/21 14:58 WBC RBC Hgb Hct MCV MCH MCHC RDW Plt Count MPV Neut # (Auto) Lymph # (Auto) [place] # (Auto) Eos # (Auto) Baso # (Auto) Absolute Nucleated RBC Nucleated RBC % Sodium Potassium Chloride Carbon Dioxide Anion Gap BUN Creatinine Estimated GFR (MDRD) Glucose Calcium Magnesium Total Bilirubin AST ALT Alkaline Phosphatase Troponin I High Sens Total Protein Albumin Globulin Albumin/Globulin Ratio Lipase Urine Color YELLOW Urine Clarity CLEAR Urine pH 6.0 Ur Specific [place] 1.015 Urine Protein NEGATIVE Urine Glucose (UA) NEGATIVE Urine Ketones NEGATIVE Urine Occult Blood NEGATIVE Urine Nitrite NEGATIVE Urine Bilirubin NEGATIVE Urine Urobilinogen 0.2 (NORMAL) Ur Leukocyte Esterase NEGATIVE Ur Microscopic Review NOT INDICATED Urine Culture Comments NOT INDICATED Departure - Departure Clinical Impression: General weakness, Dehydration, Abdominal discomfort in right lower quadrant Constipation Qualifiers: Constipation type: unspecified constipation type Qualified Code(s): K59.00 - Constipation, unspecified Condition: Stable Record reviewed to determine appropriate education?: Yes Instructions: ED Constipation, ED Weakness [facility]O Follow-Up: Merlin Serrano MD [Primary Care Provider] - Prescriptions: Bisacodyl Supp [Dulcolax Supp] 10 mg [place] DAILY PRN #5 supp PRN Reason: Constipation Lactulose 10 gm PO BID PRN #240 ml PRN Reason: Constipation Comments: Your initial blood pressure was a little bit low and may be suggestive of under hydration/dehydration. It seems improved with some IV fluids. Your basic blood tests are normal as is your urine test. Your CT scan shows a large amount of stool through the colon and also in the rectal area. This likely accounts for your discomfort in the lower abdomen. I would suggest a suppository to soften the stool in the rectal area once or twice daily in the next couple of days. Also a stool softener twice daily for the next few days to become more regular. I wrote for a suppository as well as lactulose stool softener. The lactulose works pretty well so you may not want to continue that regularly once you have improved bowel movements. You can instead use a milder stool softener such as docusate daily for the next few weeks. This is [id number]. Frequent fluids and try to maintain good hydration. Recheck if not improved well over the next several days. Transmitted your script to [facility] in [place].
[2021-10-18] MEDS: SODIUM CHLORIDE 0.9% 1,000 ML IV STA (13:28)
[2021-10-18 13:32] LABS: BASOPHILS % (AUTO) 0.3 %; EOSINOPHILS % (AUTO) 0.5 %; HCT - HEMATOCRIT 37.9 % (42.0-52.0); HGB - HEMOGLOBIN 12.5 g/dL (14.0-18.0); LYMPHOCYTES # (AUTO) 0.7 10^3/uL (1.5-3.5); LYMPHOCYTES % (AUTO) 11.1 %; MEAN CORPUSCULAR HEMOGLOBIN 30.3 pg (27.0-31.0); MEAN CORPUSCULAR VOLUME 91.8 fL (80.0-94.0); MEAN PLATELET VOLUME 9.2 fL (7.4-11.4); MONOCYTES # (AUTO) 0.6 10^3/uL (0.0-1.0); MONOCYTES % (AUTO) 10.6 %; NEUTROPHILS # (AUTO) 4.6 10^3/uL (1.5-6.6); NEUTROPHILS % (AUTO) 77.2 %; PLT - PLATELET COUNT 209 10^3/uL (130-450); RED BLOOD COUNT 4.13 10^6/uL (4.70-6.10); RED CELL DISTRIBUTION WIDTH 13.2 % (12.0-15.0)
[2021-10-18] MEDS ORDERED: IOVERSOL 320 100 ML VIAL IVP ONE (13:33)
[2021-10-18 13:55] LABS: ALBUMIN 4.2 g/dL (3.2-5.5); ALBUMIN/GLOBULIN RATIO 1.6 (1.0-2.2); BILIRUBIN,TOTAL 0.9 mg/dL (0.2-1.0); CALCIUM 8.8 mg/dL (8.5-10.3); CREATININE 0.7 mg/dL (0.6-1.2); MAGNESIUM 2.2 mg/dL (1.7-2.8); POTASSIUM 4.2 mmol/L (3.5-5.0); TOTAL PROTEIN 6.8 g/dL (6.7-8.2)
[2021-10-18] MEDS: IOVERSOL 320 100 ML VIAL IVP ONE (14:34)
[2021-10-18 15:07] LABS: BILIRUBIN,URINE NEGATIVE (NEGATIVE); GLUCOSE, URINE (UA) NEGATIVE (NEGATIVE); KETONES,URINE (UA) NEGATIVE (NEGATIVE); LEUKOCYTE ESTERASE, URINE NEGATIVE (NEGATIVE); NITRITE,URINE NEGATIVE (NEGATIVE); OCCULT BLOOD,URINE NEGATIVE (NEGATIVE); PROTEIN,URINE NEGATIVE (NEGATIVE); UROBILINOGEN,URINE 0.2 (NORMAL) E.U./dL (NORMAL)
--- NOTE | 2021-10-18 15:07 | CT Report ---
PROCEDURE: Abdomen/Pelvis W INDICATIONS: lower abd cramping/ weakness CONTRAST: IV CONTRAST: Optiray 320 ml: 100 PO CONTRAST: *NO PO CONTRAST TECHNIQUE: After the administration of intravenous contrast, 5 mm thick sections acquired from the diaphragms to the symphysis. 5 mm thick coronal and sagittal reformats were acquired. For radiation dose reducti on, the following was used: automated exposure control, adjustment of mA and/or kV according to nate ent size. COMPARISON: CT abdomen/pelvis 11/08/2020 FINDINGS: Image quality: Excellent. ABDOMEN: Lung bases: Lung bases are clear. Heart size is normal. Solid organs: Liver and spleen are normal in size and enhancement. Gallbladder is surgically absent . Biliary system is non dilated. Pancreas enhances normally. No adrenal nodules. Kidneys demonstr ate normal size and enhancement, without hydronephrosis. Benign-appearing cysts are seen in the kidn eys. Peritoneum and bowel: A large stool ball is seen in the rectum measuring up to 9.3 cm in diameter. Th ere is a moderate to large amount of stool throughout the remainder of the colon. Nodes and vessels: No retroperitoneal or mesenteric adenopathy by size criteria. Aorta and inferior vena cava are normal in size. Miscellaneous: No ventral hernias. A ventriculoperitoneal shunt catheter is noted. PELVIS: Genitourinary: Bladder wall thickness is normal. Miscellaneous: Right-sided inguinal hernia contains fat and a small amount of fluid. Bones: No suspicious bony lesions. No vertebral body compression fractures. Degenerative changes a re seen in the spine. Degenerative grade 1 anterolisthesis of L4 on L5 is noted. IMPRESSION: Large volume of stool throughout the colon with a large, possibly impacted stool ball within the rect um. Reviewed by: Tal Madsen MD on 10/18/2021 3:06 PM PST Approved by: Tal Madsen MD on 10/18/2021 3:06 PM PST Station ID: [id number]
[2021-10-18 15:09] LABS: CLARITY,URINE CLEAR (CLEAR)
[2021-10-18] MEDS: LACTULOSE 10 GM /15 ML UDC PO STA (15:42)
[2021-10-18 15:59] VITALS: BP 117/73
== END 2021-10-18 15:59 | disposition home or self-care (01) ==
LOC: ED 12:42
DX: E86.0 Dehydration (principal); R53.1 Weakness; K59.00 Constipation, unspecified; R10.31 Right lower quadrant pain
CPT/HCPCS: 36415; 74177; 80053; 81003; 83690; 83735; 84484; 85025; 93005; 96360; 99283; 99284; A9270; Q9967; 81001; 87086

== ENCOUNTER 2021-10-20 14:45 | Outpatient (CLI) | payer MEDICARE, OTHER | END 2021-10-20 14:46 | disposition critical access hospital (66) | LOC: EMS 14:45 | DX: R53.1 Weakness (principal); R53.83 Other fatigue | CPT/HCPCS: A0425; A0427 ==

== ENCOUNTER 2021-10-20 15:20 | Emergency (ER) | payer MEDICARE, OTHER ==
--- NOTE | 2021-10-20 15:43 | ED Physician Documentation ---
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 He has been weak for about a week, and was seen by my partner, Dr. Miller 2 nights ago for [address] of the abdomen pelvis was done for some abdominal complaints and he was noted to be massively distended constipation. He was sent home with laxatives which he was unable to fill, he could not get them to pharmacy. He is only had 1 bowel movement since then. He continues to have abdominal distention but today felt more unsteady on his feet with unsteadiness in both legs. He denies headaches. No nausea or vomiting. Really no abdominal pain per se. He does usually walk with a walker but today was too weak to do so. Review of Systems Ten Systems: 10 systems reviewed and negative Constitutional: reports: Reviewed and negative Eyes: reports: Reviewed and negative Ears: reports: Reviewed and negative PD PAST MEDICAL HISTORY - Past Medical History Cardiovascular: None Respiratory: None Neuro: Other Endocrine/Autoimmune: None GI: Other : Benign prostate hypertrophy HEENT: Macular degeneration Psych: Depression Musculoskeletal: Osteoarthritis, Osteoporosis Derm: None - Past Surgical History Past Surgical History: Yes Neuro: LIQUOR GRINDER MILL OPERATOR shunt HEENT: Tonsil/Adenoidectomy - Present Medications Home Medications: Ambulatory Orders Medication Instructions Recorded Confirmed Celecoxib [CeleBREX] 100 mg PO BIDWM 05/21/17 10/21/21 Tamsulosin [Flomax] 0.4 mg PO QPM 07/11/18 10/21/21 Cholecalciferol (Vitamin D3) 1 tab PO DAILY 01/24/19 10/21/21 [Vitamin D3] Lutein/Zeaxanthin 1 cap PO DAILY 01/24/19 10/21/21 [Lutein-Zeaxanthin 20-1 mg Sfgl] Vit A/Vit C/Vit E/Zinc/Copper 1 cap PO DAILY 01/24/19 10/21/21 [Preservision Areds Softgel] Bisacodyl Supp [Dulcolax Supp] 10 mg [place] DAILY PRN #5 supp 10/18/21 10/21/21 Lactulose 10 gm PO BID PRN #240 ml 10/18/21 10/21/21 - Allergies Allergies/Adverse Reactions: Allergies Allergy/AdvReac Type Severity Reaction Status Date / Time No Known Drug Allergies Allergy Verified 10/18/21 12:46 - Social History Does the pt smoke?: No Smoking Status: Never smoker Does the pt drink ETOH?: No Does the pt have substance abuse?: No - Immunizations Immunizations are current?: Yes - POLST Patient has POLST: No POLST Status: Full Code PD ED PE NORMAL - Vitals Vital signs reviewed: Yes - General General: Alert and oriented X 3, Other (Well-appearing gentleman laying in bed in no distress, cooperative, alert and oriented with may be some mild cognitive deficits.) - HEENT HEENT: PERRL, EOMI - Neck Neck: Supple, no meningeal sign, No bony TTP - Cardiac Cardiac: RRR, No murmur - Respiratory Respiratory: No respiratory distress, Clear bilaterally - Abdomen Abdomen: Normal bowel sounds, Soft, Other (Very distended abdomen without tenderness) - Rectal Rectal: Other (He has a fecal impaction but it is kind of high, out of position you really cannot get at to disimpact with a finger but it is palpable.) - Back Back: No CVA TTP, No spinal TTP - Derm Derm: Normal color, Warm and dry - Extremities Extremities: No edema, No calf tenderness / cord - Neuro Neuro: Alert and oriented X 3, No motor deficit, No sensory deficit, Normal speech Results - Vitals Vitals: Vital Signs - 24 hr 10/20/21 10/20/21 10/20/21 15:32 19:38 21:00 Temperature 36.8 C 36.6 C Heart Rate 81 73 65 Respiratory 16 16 16 Rate Blood Pressure 115/77 144/79 H 117/77 O2 Saturation 96 96 96 10/20/21 10/21/21 10/21/21 23:00 01:00 03:00 Temperature 36.5 C 36.5 C Heart Rate 88 85 79 Respiratory 16 15 15 Rate Blood Pressure 131/78 H 125/68 122/67 O2 Saturation 94 95 96 10/21/21 10/21/21 10/21/21 05:00 07:27 09:00 Temperature 36.5 C Heart Rate 72 67 71 Respiratory 15 16 16 Rate Blood Pressure 131/68 H 116/61 117/68 O2 Saturation 95 96 96 10/21/21 10/21/21 10:17 14:12 Temperature 37.1 C Heart Rate 70 74 Respiratory 16 14 Rate Blood Pressure 133/73 H 154/74 H O2 Saturation 97 96 Oxygen O2 Source [] Room air O2 Source Room air - Labs Labs: Laboratory Tests 10/20/21 10/20/21 10/21/21 16:09 16:09 07:20 WBC 6.2 RBC 3.91 L Hgb 11.9 L Hct 36.2 L MCV 92.6 MCH 30.4 MCHC 32.9 RDW 13.2 Plt Count 201 MPV 9.4 Neut # (Auto) 4.8 Lymph # (Auto) 0.5 L [place] # (Auto) 0.8 Eos # (Auto) 0.0 Baso # (Auto) 0.0 Absolute Nucleated RBC 0.00 Nucleated RBC % 0.0 Sodium 138 Potassium 4.1 Chloride 101 Carbon Dioxide 26 Anion Gap 11.0 BUN 19 Creatinine 0.8 Estimated GFR (MDRD) 91 Glucose 120 H Calcium 8.8 Total Bilirubin 0.7 AST 18 ALT 11 Alkaline Phosphatase 58 Total Protein 6.5 L Albumin 3.8 Globulin 2.7 Albumin/Globulin Ratio 1.4 Lipase 52 H Nasal Adenovirus (PCR) NOT DETECTED Nasal B. parapertussis DNA (PCR) NOT DETECTED Nasal Coronavir 229E PCR NOT DETECTED Nasal Coronavir HKU1 PCR NOT DETECTED Nasal Coronavir NL63 PCR NOT DETECTED Nasal Coronavir OC43 PCR NOT DETECTED Nasal Enterovir/Rhinovir PCR NOT DETECTED Nasal Influenza B PCR NOT DETECTED Nasal Influenza A PCR NOT DETECTED Nasal Parainfluen 1 PCR NOT DETECTED Nasal Parainfluen 2 PCR NOT DETECTED Nasal Parainfluen 3 PCR NOT DETECTED Nasal Parainfluen 4 PCR NOT DETECTED Nasal RSV (PCR) NOT DETECTED Nasal B.pertussis DNA PCR NOT DETECTED Nasal C.pneumoniae (PCR) NOT DETECTED Tom Human Metapneumo PCR NOT DETECTED Nasal M.pneumoniae (PCR) NOT DETECTED Nasal SARS-CoV-2 (PCR) NOT DETECTED - Rads (name of study) CT Head Radiology: EMP read contemporaneously (stable ventriculomegaly, LIQUOR GRINDER MILL OPERATOR shunt in place) PD MEDICAL DECISION MAKING - ED course ED course: 86-year-old gentleman with worsening lower extremity weakness of unclear etiology. He does have his LIQUOR GRINDER MILL OPERATOR shunt in place but also has massive obstipation. He was disimpacted here and given a few enemas. This is an 86-year-old gentleman with lower extremity weakness. He has a LIQUOR GRINDER MILL OPERATOR shunt in place. Denies headaches though. No significant low back pain. In the bed he has reasonable strength in lower extremities but unable to walk. I did discuss the case by phone with Dr. Almeida, neurosurgery at [facility] at approximately 1750, and discussed the findings on head CT as well as physical exam and he did not feel like it was related to his LIQUOR GRINDER MILL OPERATOR shunt. After the above interventions, he was able to walk but only a few steps and with assistance. He did not feel comfortable going home. No real admission criteria evident at this time though. Given more laxatives and more IV fluids. Care to overnight EDMD at shift change. On return to my shift the next day, October 21 reportedly patient was doing much better and was able to ambulate. He had had copious stool output with laxative interventions here. Departure - Departure Disposition: 01 Home, Self Care Clinical Impression: Generalized weakness, Impaction of colon Condition: Stable Instructions: ED Weakness [facility]O Follow-Up: Merlin Serrano MD [Primary Care Provider] - Within 1 week Comments: Please follow-up with Dr. Serrano for further care. They will put in a referral for help for home for you as well. Return if you worsen. Discharge Date/Time: 10/21/21 14:14
[2021-10-20] MEDS: SODIUM CHLORIDE 0.9% 1,000 ML IV STA (16:10)
[2021-10-20 16:17] LABS: BASOPHILS % (AUTO) 0.3 %; EOSINOPHILS % (AUTO) 0.5 %; HCT - HEMATOCRIT 36.2 % (42.0-52.0); HGB - HEMOGLOBIN 11.9 g/dL (14.0-18.0); LYMPHOCYTES # (AUTO) 0.5 10^3/uL (1.5-3.5); LYMPHOCYTES % (AUTO) 8.7 %; MEAN CORPUSCULAR HEMOGLOBIN 30.4 pg (27.0-31.0); MEAN CORPUSCULAR HGB CONC 32.9 g/dL (32.0-36.0); MEAN CORPUSCULAR VOLUME 92.6 fL (80.0-94.0); MEAN PLATELET VOLUME 9.4 fL (7.4-11.4); MONOCYTES # (AUTO) 0.8 10^3/uL (0.0-1.0); NEUTROPHILS # (AUTO) 4.8 10^3/uL (1.5-6.6); NEUTROPHILS % (AUTO) 77.3 %; PLT - PLATELET COUNT 201 10^3/uL (130-450); RED BLOOD COUNT 3.91 10^6/uL (4.70-6.10); RED CELL DISTRIBUTION WIDTH 13.2 % (12.0-15.0); WHITE BLOOD COUNT 6.2 x10^3/uL (4.8-10.8)
[2021-10-20] MEDS: MAGNESIUM CITRATE 296 ML BOTTLE PO STA (16:17)
[2021-10-20] MEDS: bisacodyL 5 MG TABLET PO STA (16:18)
--- NOTE | 2021-10-20 16:20 | CT Report ---
PROCEDURE: HEAD WO INDICATIONS: weakness, vp foundation shunt TECHNIQUE: Noncontrast 4.5 mm thick angled axial sections acquired from the foramen magnum to the vertex. For r adiation dose reduction, the following was used: automated exposure control, adjustment of mA and/or kV according to patient size. COMPARISON: 04/03/2021, 01/15/2021, 11/17/2020 FINDINGS: Image quality: Motion artifact is noted. CSF spaces: There is a right frontal approach ventriculostomy catheter, with the tip along the midli ne within the anterior aspect of the right lateral ventricle. This is stable compared to the prior ex amination. The ventricles demonstrate stable prominence. Basal cisterns are patent. No extra-axial fluid collections. Brain: No midline shift. No intracranial masses or hemorrhage. [place]-white matter interface is norm al. Skull and face: Calvarium and visualized facial bones are intact, without suspicious lesions. Sinuses: Visualized sinuses and mastoids are clear. Bilateral keith bullosa can be seen. IMPRESSION: Stable intracranial study. Stable right frontal approach ventriculostomy catheter. Stable ventricular prominence can be seen. Reviewed by: Toño Mason MD on 10/20/2021 3:19 PM [place] Approved by: Toño Mason MD on 10/20/2021 3:19 PM [facility] Station ID: [id number]
[2021-10-20 16:28] LABS: ALBUMIN 3.8 g/dL (3.2-5.5); ALBUMIN/GLOBULIN RATIO 1.4 (1.0-2.2); BILIRUBIN,TOTAL 0.7 mg/dL (0.2-1.0); CALCIUM 8.8 mg/dL (8.5-10.3); CREATININE 0.8 mg/dL (0.6-1.2); POTASSIUM 4.1 mmol/L (3.5-5.0); TOTAL PROTEIN 6.5 g/dL (6.7-8.2)
[2021-10-20] MEDS: LACTATED RINGERS 500 ML IV ONE (19:45)
[2021-10-20] MEDS: LACTULOSE 10 GM /15 ML UDC PO STA (21:53)
[2021-10-21] MEDS: diphenhydrAMINE ELIXIR 25 MG/10 ML UDC PO STA (03:10)
--- NOTE | 2021-10-21 05:11 | ED Physician Documentation ---
ED Addendum - Addendum Addendum: 10/21/21 05:07 Received sign out from Dr. Alexis at end of his shift; at that time, plan was repeat attempt to ambulate patient at 11:30 PM (he was unable to stand due to weakness on an earlier attempt). I was told that he was able to stand and bear weight and even ambulate a few steps with walker and some assistance. I reevaluated patient and discussed potential to discharge him home, but he says he still feels too weak to go home. I discussed the case with Dr. Shaw; patient does not meet criteria for admission at this time. I recommended to patient to stay in ED until SW consult can be obtained to evaluate possible home-health options or subacute/SNF placement. He is agreeable to this. He asks that I call his ; I did so but received VM, left message. He repeatedly asks for something to help him sleep, given 12.5mg benadryl po 10/21/21 08:[address] Doyle at end of my shift pending SW consult and disposition
[2021-10-21 08:24] LABS: B. PARAPERTUSSIS- RESP PCR PAN NOT DETECTED; B. PERTUSSIS- RESP PCR PANEL NOT DETECTED; C. PNEUMONIAE- RESP PCR PANEL NOT DETECTED; CORONAVIRUS 229E-RESP PCR NOT DETECTED; CORONAVIRUS HKU1-RESP PCR NOT DETECTED; CORONAVIRUS NL63-RESP PCR NOT DETECTED; CORONAVIRUS OC43-RESP PCR NOT DETECTED; HUMAN METAPNEUMOVIRUS NOT DETECTED; INFLUENZA A- RESP PCR PANEL NOT DETECTED; INFLUENZA B - RESP PCR PANEL NOT DETECTED; M. PNEUMONIAE- RESP PCR PANEL NOT DETECTED; PARAINFLUENZA VIRUS 1 NOT DETECTED; PARAINFLUENZA VIRUS 2 NOT DETECTED; PARAINFLUENZA VIRUS 3 NOT DETECTED; PARAINFLUENZA VIRUS 4 NOT DETECTED; RHINOVIRUS/ENTEROVIRUS NOT DETECTED; RSV- RESP PCR PANEL NOT DETECTED; SARS-CoV-2 -RESP PCR PANEL NOT DETECTED
--- NOTE | 2021-10-21 12:13 | ED Physician Documentation ---
ED Addendum - Addendum Addendum: 10/21/21 12:10 Social work spoke at length with the patient and his . He would like to go home and she would like to have him back home. He is able to stand with a walker and walk about 20 feet in the emergency department. They do not want to go to a senior living. The patient is comfortable going home at this time and will return if he worsens. His PCP will put in orders for home health/physical therapy and caregivers for home per SW This document was made in part using voice recognition software. While efforts are made to proofread this document, sound alike and grammatical errors may occur. Departure - Departure Disposition: 01 Home, Self Care Clinical Impression: Generalized weakness Condition: Stable Instructions: ED Weakness UKO Follow-Up: Merlin Serrano MD [Primary Care Provider] - Within 1 week Comments: Please follow-up with Dr. Serrano for further care. They will put in a referral for help for home for you as well. Return if you worsen.
[2021-10-21 14:13] VITALS: BP 154/74
== END 2021-10-21 14:14 | disposition home or self-care (01) ==
LOC: EDUNIT# → ED 15:20
DX: R53.1 Weakness (principal); R26.81 Unsteadiness on feet; K56.41 Fecal impaction; Z98.2 Presence of cerebrospinal fluid drainage device; Z20.822 Contact with and (suspected) exposure to COVID-19
CPT/HCPCS: 36415; 70450; 80053; 83690; 85025; 87631; 99284; A9270; J7120; 0202U

== ENCOUNTER 2021-10-26 07:40 | Outpatient (CLI) | payer MEDICARE, OTHER | END 2021-10-26 07:41 | disposition EMS.NT | LOC: EMS 07:40 | DX: Z03.89 Encounter for observation for other suspected diseases and conditions ruled out (principal) ==

== ENCOUNTER 2021-11-29 07:11 | Outpatient (CLI) | payer MEDICARE, OTHER | END 2021-11-29 07:12 | disposition EMS.NT | LOC: EMS 07:11 ==